=== PATIENT | female | born 1930 | race Caucasian/White ===

== ENCOUNTER → 2017-01-31 | Outpatient (CLI) | payer MEDICARE, BC ==
--- NOTE | 2017-02-04 09:03 | MM ---
Reason for exam: screening (asymptomatic). Last mammogram was performed 1 year ago. History: Patient is postmenopausal. Family history of breast cancer in sister at age 76 and breast cancer in grandmother at age 21. Took hormonal contraceptives for 10 years beginning at age 30. Physical Findings: A clinical breast exam by your physician is recommended on an annual basis and results should be correlated with mammographic findings. MG Screening Mammo w CAD Bilateral CC and MLO view(s) were taken. Prior study comparison: January 19, 2016, bilateral MG 3d screening mammo w/cad. The breast tissue is almost entirely fat. No significant changes when compared with prior studies. ASSESSMENT: Negative, BI-RAD 1 RECOMMENDATION: Routine screening mammogram of both breasts in 1 year.
== END | disposition home or self-care (01) ==
LOC: RADMAMWWP 10:57
PROVIDERS: ATTEND Internal Medicine
DX: Z12.31 Encounter for screening mammogram for malignant neoplasm of breast (principal)

== ENCOUNTER → 2018-04-22 | Outpatient (CLI) | payer MEDICARE, BC ==
--- NOTE | 2018-04-23 14:01 | MM ---
Reason for exam: screening (asymptomatic). Last mammogram was performed 1 year and 3 months ago. History: Patient is postmenopausal. Family history of breast cancer in sister at age 76 and breast cancer in grandmother at age 21. Took hormonal contraceptives for 10 years beginning at age 30. Physical Findings: A clinical breast exam by your physician is recommended on an annual basis and results should be correlated with mammographic findings. MG 3D Screening Mammo W/Cad Bilateral CC and MLO view(s) were taken. Prior study comparison: January 31, 2017, bilateral MG screening mammo w CAD. January 19, 2016, bilateral MG 3d screening mammo w/cad. There are scattered fibroglandular densities. There is benign appearing round vascular calcifications bilaterally. There is no discrete abnormality. ASSESSMENT: Benign, BI-RAD 2 RECOMMENDATION: Routine screening mammogram of both breasts in 1 year.
== END | disposition home or self-care (01) ==
LOC: RADMAMWWP 13:02
PROVIDERS: ATTEND Internal Medicine
DX: Z12.31 Encounter for screening mammogram for malignant neoplasm of breast (principal)
CPT/HCPCS: 77063; 77067

== ENCOUNTER 2019-04-13 18:02 | Inpatient (IN) | payer MEDICARE, BC ==
--- NOTE | 2019-04-13 18:36 | ED ---
SOB HPI - General Chief Complaint: Shortness of Breath Stated Complaint: Weakness Time Seen by Provider: 04/13/19 18:13 Source: patient, EMS Mode of arrival: EMS Limitations: no limitations - History of Present Illness Initial Comments: 88 yoF presenting with shortness of breath that has been present for the last two weeks. She states 7 weeks prior she had a right knee replacement. She's had some right lower extremity swelling since that surgery. She states the shortness of breath is when she is exerting herself. She was unable to complete her physical therapy today. She denies chest pain at any point. She states she did have a stress test, and was cleared by supervisor carton and can supply to have her right knee replacement. She denies any cough or fevers or chills. - Related Data Home Medications Medication Instructions Recorded Confirmed Latanoprost/Pf [Latanoprost 0.005% 1 drop BOTH EYES HS 04/13/19 04/13/19 Eye Drop] Zafirlukast [Accolate] 20 mg PO HS 04/13/19 04/13/19 Allergies Allergy/AdvReac Type Severity Reaction Status Date / Time No Known Allergies Allergy Unverified 04/13/19 18:45 Review of Systems ROS Statement: Those systems with pertinent positive or pertinent negative responses have been documented in the HPI. Review of Systems Constitutional: Denies fever, chills Eyes: Denies change in vision, Denies pain Ears, nose, mouth, throat: Denies headaches, Denies sore throat Cardiovascular: Denies chest pain. Denies palpitations Respiratory: Positive shortness of breath, Denies cough Gastrointestinal: Denies abdominal pain. Denies nausea, vomiting, diarrhea. Genitourinary: Denies hematuria, Denies infections Musculoskeletal: Denies pain, Denies swelling Integumentary: Denies rash Neurological: Denies headache, focal weakness, focal numbness Psychiatric: Denies anxiety, Denies depression Hematologic/Lymphatic: Denies easy bleeding or bruising ROS Other: All systems not noted in ROS Statement are negative. Past Medical History Additional Past Medical History / Comment(s): Bronchitis. History of Any Multi-Drug Resistant Organisms: None Reported Past Surgical History: Appendectomy, Orthopedic Surgery Additional Past Surgical History / Comment(s): right knee replacement Past Psychological History: No Psychological Hx Reported Smoking Status: Never smoker Past Alcohol Use History: None Reported Past Drug Use History: None Reported General Exam - General Exam Comments Initial Comments: General: Awake, alert, No acute Distress HENT: Normocephalic. Atraumatic Eyes: PERRL. EOMI. No scleral icterus. No injected conjunctiva Neck: Full ROM Chest/Lungs: Clear to auscultation bilaterally. No wheezing, rhonchi, or rales Cardiac: Regular rate, rhythm. No murmurs or rubs Abdomen/GI: Soft, nontender, nondistended. No rebound, guarding, or rigidity. Musculoskeletal: Full ROM. Swelling to RLE. Skin: Warm, dry, intact Neurologic: A/Ox3, no weakness, no sensory deficit, no abnormal gait, no coordination deficit Limitations: no limitations Course Vital Signs 04/13/19 04/13/19 04/13/19 18:03 18:14 19:27 Temperature 98.2 F Pulse Rate 63 95 Respiratory 22 22 18 Rate Blood Pressure 194/94 171/88 O2 Sat by Pulse 94 L 97 Oximetry 04/13/19 20:09 Temperature Pulse Rate 78 Respiratory 17 Rate Blood Pressure 159/94 O2 Sat by Pulse 98 Oximetry Medical Decision Making - Medical Decision Making 88-year-old female presenting with shortness of breath. Initial exam the patient is awake, alert, no acute distress. VSS. Patient is 95% on room air. Wells PE score 7.5. CT PE showed multiple pulmonary emboli but no evidence of right heart strain. Patient's troponin is 0.6. On repeat examination the patient is resting comfortably. She denies any history of intracranial or GI bleed. Her hemoglobin is stable. Her BMP showed hyperkalemia without an elevated creatinine. The patient has no EKG changes. She was given a 1L bolus and placed on maintenance fluids. I spoke with the admitting physician, Dr. Brandt regarding patient. She is currently stable for transfer to the floor. - Lab Data Result diagrams: 04/13/19 18:20 04/13/19 18:20 Lab Results 04/13/19 04/13/19 04/13/19 Range/Units 17:00 18:20 18:20 WBC 11.1 H (3.8-10.6) k/uL RBC 5.46 H (3.80-5.40) m/uL Hgb 15.4 (11.4-16.0) gm/dL Hct 47.7 H (34.0-46.0) % MCV 87.3 (80.0-100.0) fL MCH 28.2 (25.0-35.0) pg MCHC 32.4 (31.0-37.0) g/dL RDW 13.8 (11.5-15.5) % Plt Count 106 L (150-450) k/uL Neutrophils % 79 % Lymphocytes % 15 % Monocytes % 4 % Eosinophils % 1 % Basophils % 0 % Neutrophils # 8.8 H (1.3-7.7) k/uL Lymphocytes # 1.7 (1.0-4.8) k/uL Monocytes # 0.5 (0-1.0) k/uL Eosinophils # 0.1 (0-0.7) k/uL Basophils # 0.0 (0-0.2) k/uL PT 9.7 (9.0-12.0) sec INR 0.9 (<1.2) APTT 24.8 (22.0-30.0) sec Sodium 134 L (137-145) mmol/L Potassium 5.3 H (3.5-5.1) mmol/L Chloride 105 (98-107) mmol/L Carbon Dioxide 24 (22-30) mmol/L Anion Gap 5 mmol/L BUN 22 H (7-17) mg/dL Creatinine 0.68 (0.52-1.04) mg/dL Est GFR (CKD-EPI)AfAm >90 (>60 ml/min/1.73 sqM) Est GFR (CKD-EPI)NonAf 78 (>60 ml/min/1.73 sqM) Glucose 108 H (74-99) mg/dL Calcium 9.5 (8.4-10.2) mg/dL Troponin I (0.000-0.034) ng/mL NT-Pro-B Natriuret Pep pg/mL Urine Color Urine Appearance (Clear) Urine pH (5.0-8.0) Ur Specific [place] (1.001-1.035) Urine Protein (Negative) Urine Glucose (UA) (Negative) Urine Ketones (Negative) Urine Blood (Negative) Urine Nitrite (Negative) Urine Bilirubin (Negative) Urine Urobilinogen (<2.0) mg/dL Ur Leukocyte Esterase (Negative) 04/13/19 04/13/19 04/13/19 Range/Units 18:20 18:20 18:50 WBC (3.8-10.6) k/uL RBC (3.80-5.40) m/uL Hgb (11.4-16.0) gm/dL Hct (34.0-46.0) % MCV (80.0-100.0) fL MCH (25.0-35.0) pg MCHC (31.0-37.0) g/dL RDW (11.5-15.5) % Plt Count (150-450) k/uL Neutrophils % % Lymphocytes % % Monocytes % % Eosinophils % % Basophils % % Neutrophils # (1.3-7.7) k/uL Lymphocytes # (1.0-4.8) k/uL Monocytes # (0-1.0) k/uL Eosinophils # (0-0.7) k/uL Basophils # (0-0.2) k/uL PT (9.0-12.0) sec INR (<1.2) APTT (22.0-30.0) sec Sodium (137-145) mmol/L Potassium (3.5-5.1) mmol/L Chloride (98-107) mmol/L Carbon Dioxide (22-30) mmol/L Anion Gap mmol/L BUN (7-17) mg/dL Creatinine (0.52-1.04) mg/dL Est GFR (CKD-EPI)AfAm (>60 ml/min/1.73 sqM) Est GFR (CKD-EPI)NonAf (>60 ml/min/1.73 sqM) Glucose (74-99) mg/dL Calcium (8.4-10.2) mg/dL Troponin I 0.639 H* (0.000-0.034) ng/mL NT-Pro-B Natriuret Pep 4810 pg/mL Urine Color Yellow Urine Appearance Clear (Clear) Urine pH 5.5 (5.0-8.0) Ur Specific [place] 1.015 (1.001-1.035) Urine Protein Trace H (Negative) Urine Glucose (UA) Negative (Negative) Urine Ketones Negative (Negative) Urine Blood Negative (Negative) Urine Nitrite Negative (Negative) Urine Bilirubin Negative (Negative) Urine Urobilinogen <2.0 (<2.0) mg/dL Ur Leukocyte Esterase Negative (Negative) Disposition Clinical Impression: NSTEMI (non-ST elevated myocardial infarction), Pulmonary emboli, Hyperkalemia Disposition: ADMITTED IP TO THIS [facility] Decision to Admit Reason: Admit from EC Decision Date: 04/13/19 Decision Time: 19:47
[2019-04-13 18:46] LABS: Basophils % (A) 0 %; Eosinophils # (A) 0.1 k/uL (0-0.7); Eosinophils % (A) 1 %; HCT 47.7 % (34.0-46.0); HGB 15.4 gm/dL (11.4-16.0); Lymphocytes # (A) 1.7 k/uL (1.0-4.8); Lymphocytes % (A) 15 %; MCH 28.2 pg (25.0-35.0); MCHC 32.4 g/dL (31.0-37.0); MCV 87.3 fL (80.0-100.0); Mean Platelet Volume 7.9; Monocytes # (A) 0.5 k/uL (0-1.0); Monocytes % (A) 4 %; Neutrophils # (A) 8.8 k/uL (1.3-7.7); Neutrophils % (A) 79 %; Platelet Count 106 k/uL (150-450); RBC 5.46 m/uL (3.80-5.40); RDW 13.8 % (11.5-15.5); WBC 11.1 k/uL (3.8-10.6)
[2019-04-13 18:52] LABS: African American GFR (CKD) >90 (>60 ml/min/1.73 sqM); Anion Gap 5 mmol/L; Blood Urea Nitrogen 22 mg/dL (7-17); Calcium 9.5 mg/dL (8.4-10.2); Carbon Dioxide 24 mmol/L (22-30); Chloride 105 mmol/L (98-107); Glucose 108 mg/dL (74-99); Non-African American GFR(CKD) 78 (>60 ml/min/1.73 sqM); Sodium 134 mmol/L (137-145)
[2019-04-13 18:55] LABS: Potassium 5.3 mmol/L (3.5-5.1)
[2019-04-13 19:03] LABS: Appearance,Urine Clear (Clear); Bilirubin,Urine Negative (Negative); Blood,Urine Negative (Negative); Color,Urine Yellow; Glucose,Urine (UA) Negative (Negative); Ketones,Urine Negative (Negative); Leukocyte Esterase,Urine Negative (Negative); Nitrite,Urine Negative (Negative); PH, Urine 5.5 (5.0-8.0); Protein,Urine Trace (Negative); Specific Gravity,Urine 1.015 (1.001-1.035); Urobilinogen,Urine <2.0 mg/dL (<2.0)
[2019-04-13 19:22] LABS: INR 0.9 (<1.2); Partial Thromboplastin Time 24.8 sec (22.0-30.0); Prothrombin Time 9.7 sec (9.0-12.0)
[2019-04-13] MEDS ORDERED: HEPARIN SODIUM,PORCINE 5,000 UNIT/ML 1 ML VIAL IV PRN (19:29)
[2019-04-13] MEDS ORDERED: HEPARIN SODIUM,PORCINE 10,000 UNIT/ML 1 ML VIAL IV ONE (19:29)
[2019-04-13] MEDS ORDERED: SODIUM CHLORIDE 0.9% 1,000 ML IV ONE (19:33)
--- NOTE | 2019-04-13 19:33 | CT ---
EXAMINATION TYPE: CT chest angio for PE DATE OF EXAM: 04/13/2019 COMPARISON: HISTORY: SOB CT DLP: 336.2 mGycm Automated exposure control for dose reduction was used. CONTRAST: CT Chest for pulmonary embolism performed with with IV Contrast, patient injected with 62cc mL of Iso josemanuel 370. FINDINGS: There is some pleural thickening at the right lung apex. There is no evidence of a pulmonary mass. Th ere is no pleural effusion. Heart is borderline enlarged. There are multiple filling defects in the lower lobe pulmonary arteries bilaterally involving all of the segmental branches. There is also involvement of the right middle lobe pulmonary artery. There is small filling defects in the left and right upper lobe pulmonary arteries. The thoracic vertebra hav e fairly normal spacing and alignment. There is no compression fracture. I see no bony destructive pr ocess. There is hypertrophic multilevel spurring in the thoracic spine. The right ventricle has geraldine l size. There is no sign of right heart strain. IMPRESSION: Extensive bilateral upper and lower lobe pulmonary emboli as described above. This exam was discussed with ER physician at 7:30 PM.
--- NOTE | 2019-04-13 19:34 | XR ---
EXAMINATION TYPE: XR chest 2V DATE OF EXAM: 04/13/2019 COMPARISON: NONE HISTORY: Short of breath TECHNIQUE: Frontal and lateral views of the chest are obtained. FINDINGS: There is no heart failure nor confluent pneumonic infiltrate. Costophrenic angles are bhavana r. Thoracic aorta is atheromatous. Bony thorax is intact. IMPRESSION: No active cardiopulmonary disease. Normal heart.
[2019-04-13] MEDS ORDERED: HYDROcodone/APAP 5-325MG 1 EACH TAB PO PRN (19:42)
[2019-04-13] MEDS ORDERED: ONDANSETRON 4 MG/2 ML VIAL IVP PRN (19:42)
[2019-04-13] MEDS ORDERED: NALOXONE 0.4 MG/ML 1 ML VIAL IV PRN (19:42)
[2019-04-13] MEDS ORDERED: ACETAMINOPHEN TAB 325 MG TAB PO PRN (19:42)
[2019-04-13] MEDS: HEPARIN SOD,PORK IN 0.45% NACL 25,000 UNIT in 0.45% NACL 1 250ML.BAG IV SCH (20:06)
[2019-04-13] MEDS: LATANOPROST 0.005% OPHTH DROPS 2.5 ML BTL BOTH EYES SCH (23:33)
[2019-04-13] MEDS: MONTELUKAST 5 MG CHEWABLE PO SCH (23:36)
[2019-04-14 02:11] VITALS: BMI 32.0
[2019-04-14 06:27] LABS: Basophils # (A) 0.1 k/uL (0-0.2); Basophils % (A) 1 %; Eosinophils # (A) 0.1 k/uL (0-0.7); Eosinophils % (A) 1 %; HCT 43.1 % (34.0-46.0); HGB 13.3 gm/dL (11.4-16.0); Lymphocytes # (A) 1.6 k/uL (1.0-4.8); Lymphocytes % (A) 15 %; MCH 27.6 pg (25.0-35.0); MCHC 30.8 g/dL (31.0-37.0); MCV 89.7 fL (80.0-100.0); Mean Platelet Volume 7.4; Monocytes # (A) 0.6 k/uL (0-1.0); Monocytes % (A) 5 %; Neutrophils % (A) 77 %; Platelet Count 158 k/uL (150-450); WBC 10.4 k/uL (3.8-10.6)
[2019-04-14 07:24] LABS: African American GFR (CKD) >90 (>60 ml/min/1.73 sqM); Anion Gap 8 mmol/L; Blood Urea Nitrogen 20 mg/dL (7-17); Calcium 8.8 mg/dL (8.4-10.2); Carbon Dioxide 20 mmol/L (22-30); Chloride 111 mmol/L (98-107); Glucose 98 mg/dL (74-99); Non-African American GFR(CKD) 78 (>60 ml/min/1.73 sqM); Potassium 4.5 mmol/L (3.5-5.1); Sodium 139 mmol/L (137-145)
--- NOTE | 2019-04-14 08:49 | US ---
EXAMINATION TYPE: US venous doppler duplex LE DATE OF EXAM: 04/14/2019 7:33 AM COMPARISON: CT angiography of the chest dated 04/13/2019 CLINICAL HISTORY: lower extremity swelling with positive DVT. Bilateral PE right knee surgery x 7 wee ks ago. SIDE PERFORMED: Bilateral TECHNIQUE: The lower extremity deep venous system is examined utilizing real time linear array sonog mario with graded compression, doppler sonography and color-flow sonography. VESSELS IMAGED: External Iliac Vein (EIV) Common Femoral Vein Deep Femoral Vein Greater Saphenous Vein * Femoral Vein Popliteal Vein Small Saphenous Vein * Proximal Calf Veins (* superficial vessels) Grayscale, color doppler, spectral doppler imaging performed of the deep veins of the lower extremiti es. There is normal flow, compressibility, vascular waveforms on the left. Right Leg: Positive for DVT Popliteal Vein to Proximal Calf Veins. Left Leg: Negative for DVT IMPRESSION: 1. Deep venous thrombosis within the right popliteal vein extending into the proximal calf veins. The patient has known pulmonary emboli communicated with the ER on 04/13/2019. 2. No sonographic evidence of deep venous thrombosis within the left lower extremity.
--- NOTE | 2019-04-14 14:45 | P.HPIM ---
History of Present Illness 88-year-old pleasant female came in with compensative shortness of breath found to have extensive pulmonary emboli and bilateral lung coats upper and lower. Patient had a recent knee surgery 7 weeks ago was on 9 aspirin twice a day for a month after that it was stopped and patient was ablating after that and patient also found to have DVT in the right popliteal vein patient is presently on intravenous Cardizem denied any chest pain denied any leg pain nausea vomiting fever chills. Patient was started on heparin will evaluate for Eliquis authorization and patient probably will be started on Eliquis tomorrow patient does have minimally elevated troponin per probably secondary to right ventricular strain of the echocardiogram will be obtained as well. And is hemodynamically stable at this time. Review of Systems REVIEW OF SYSTEMS: CONSTITUTIONAL: No fever, no malaise, no fatigue. HEENT: No recent visual problems or hearing problems. Denied any sore throat. CARDIOVASCULAR: No chest pain, orthopnea, PND, no palpitations, no syncope. PULMONARY: no hemoptysis. GASTROINTESTINAL: No diarrhea, no nausea, no vomiting, no abdominal pain. NEUROLOGICAL: No headaches, no weakness, no numbness. HEMATOLOGICAL: Denies any bleeding or petechiae. GENITOURINARY: Denies any burning micturition, frequency, or urgency. MUSCULOSKELETAL/RHEUMATOLOGICAL: Denies any joint pain, swelling, or any muscle pain. ENDOCRINE: Denies any polyuria or polydipsia. The rest of the 14-point review of systems is negative. Past Medical History Additional Past Medical History / Comment(s): Bronchitis. History of Any Multi-Drug Resistant Organisms: None Reported Past Surgical History: Appendectomy, Orthopedic Surgery Additional Past Surgical History / Comment(s): right knee replacement 7 weeks ago Past Anesthesia/Blood Transfusion Reactions: No Reported Reaction Past Psychological History: No Psychological Hx Reported Smoking Status: Never smoker Past Alcohol Use History: None Reported Past Drug Use History: None Reported - Past Family History Mother Family Medical History: No Reported History Medications and Allergies Home Medications Medication Instructions Recorded Confirmed Type Latanoprost/Pf [Latanoprost 0.005% 1 drop BOTH EYES HS 04/13/19 04/13/19 History Eye Drop] Zafirlukast [Accolate] 20 mg PO HS 04/13/19 04/13/19 History Allergies Allergy/AdvReac Type Severity Reaction Status Date / Time No Known Allergies Allergy Unverified 04/13/19 18:45 Physical Exam Vitals: Vital Signs Temp Pulse Pulse Resp BP BP Pulse Ox 04/14/19 12:45 98.2 F 76 16 162/78 98 04/14/19 08:00 97.7 F 72 18 175/83 98 04/14/19 04:30 97.9 F 78 17 168/78 98 04/14/19 01:49 97.0 F L 69 18 147/93 97 04/13/19 23:00 55 L 19 189/77 97 04/13/19 22:30 60 18 195/87 96 04/13/19 22:00 64 19 188/83 96 04/13/19 21:30 67 18 181/87 97 04/13/19 20:09 78 17 159/94 98 04/13/19 19:27 98.2 F 95 18 171/88 97 04/13/19 18:14 22 04/13/19 18:03 63 22 194/94 94 L Intake and Output 04/13/19 04/14/19 04/14/19 22:59 06:59 14:59 Intake Total 87.157 727.516 Balance 87.157 727.516 Intake: IV 160 .9 160 Intake, IV Titration 87.157 87.516 Amount Heparin Sod,Pork in 0.45% 87.157 87.516 NaCl 25,000 unit In 0.45 % NaCl 1 250ml.bag @ 18 UNITS/KG/HR 14.288 mls/hr IV .[id number] [facility] Rx#: [id number] Oral 480 Other: Voiding Method Toilet # Voids 1 1 Weight 79.379 kg PHYSICAL EXAMINATION: GENERAL: The patient is alert and oriented x3, not in any acute distress. Well developed, well nourished. HEENT: Pupils are round and equally reacting to light. EOMI. No scleral icterus. No conjunctival pallor. Normocephalic, atraumatic. No pharyngeal erythema. No thyromegaly. CARDIOVASCULAR: S1 and S2 present. No murmurs, rubs, or gallops. PULMONARY: Chest is clear to auscultation, no wheezing or crackles. ABDOMEN: Soft, nontender, nondistended, normoactive bowel sounds. No palpable organomegaly. MUSCULOSKELETAL: No joint swelling or deformity. EXTREMITIES: No cyanosis, clubbing, or pedal edema. NEUROLOGICAL: Gross neurological examination did not reveal any focal deficits. SKIN: No rashes. Results CBC & Chem 7: 04/14/19 06:02 04/14/19 06:02 Labs: Abnormal Lab Results - Last 24 Hours (Table) 04/13/19 04/13/19 04/13/19 Range/Units 18:20 18:20 18:20 WBC 11.1 H (3.8-10.6) k/uL RBC 5.46 H (3.80-5.40) m/uL Hct 47.7 H (34.0-46.0) % MCHC (31.0-37.0) g/dL Plt Count 106 L (150-450) k/uL Neutrophils # 8.8 H (1.3-7.7) k/uL APTT (22.0-30.0) sec Sodium 134 L (137-145) mmol/L Potassium 5.3 H (3.5-5.1) mmol/L Chloride (98-107) mmol/L Carbon Dioxide (22-30) mmol/L BUN 22 H (7-17) mg/dL Glucose 108 H (74-99) mg/dL Troponin I 0.639 H* (0.000-0.034) ng/mL Urine Protein (Negative) 04/13/19 04/14/19 04/14/19 Range/Units 18:50 01:01 01:01 WBC (3.8-10.6) k/uL RBC (3.80-5.40) m/uL Hct (34.0-46.0) % MCHC (31.0-37.0) g/dL Plt Count (150-450) k/uL Neutrophils # (1.3-7.7) k/uL APTT >200.0 H* (22.0-30.0) sec Sodium (137-145) mmol/L Potassium (3.5-5.1) mmol/L Chloride (98-107) mmol/L Carbon Dioxide (22-30) mmol/L BUN (7-17) mg/dL Glucose (74-99) mg/dL Troponin I 0.561 H* (0.000-0.034) ng/mL Urine Protein Trace H (Negative) 04/14/19 04/14/19 04/14/19 Range/Units 06:02 06:02 06:02 WBC (3.8-10.6) k/uL RBC (3.80-5.40) m/uL Hct (34.0-46.0) % MCHC 30.8 L (31.0-37.0) g/dL Plt Count (150-450) k/uL Neutrophils # 8.0 H (1.3-7.7) k/uL APTT (22.0-30.0) sec Sodium (137-145) mmol/L Potassium (3.5-5.1) mmol/L Chloride 111 H (98-107) mmol/L Carbon Dioxide 20 L (22-30) mmol/L BUN 20 H (7-17) mg/dL Glucose (74-99) mg/dL Troponin I 0.386 H* (0.000-0.034) ng/mL Urine Protein (Negative) 04/14/19 04/14/19 Range/Units 08:42 11:54 WBC (3.8-10.6) k/uL RBC (3.80-5.40) m/uL Hct (34.0-46.0) % MCHC (31.0-37.0) g/dL Plt Count (150-450) k/uL Neutrophils # (1.3-7.7) k/uL APTT 167.6 H* 76.9 H (22.0-30.0) sec Sodium (137-145) mmol/L Potassium (3.5-5.1) mmol/L Chloride (98-107) mmol/L Carbon Dioxide (22-30) mmol/L BUN (7-17) mg/dL Glucose (74-99) mg/dL Troponin I (0.000-0.034) ng/mL Urine Protein (Negative) Thrombosis Risk Factor Assmnt - Choose All That Apply Any of the Below Risk Factors Present?: Yes Each Factor Represents 1 point: Obesity (BMI >25) Other Risk Factors: Yes Each Risk Factor Represents 3 Points: Age 75 years or older Thrombosis Risk Factor Assessment Total Risk Factor Score: 4 Thrombosis Risk Factor Assessment Level: Moderate Risk Assessment and Plan Plan: -Bilateral extensive pulmonary embolism intermediate risk considering right ventricle strain elevated troponin echocardiogram will be obtained patient will be continued on IV heparin will be started on Eliquis most probably tomorrow. Patient is presently medically stable, patient's be secondary to have a right knee surgery recently will require 3 months of anticoagulation. Patient does have DVT in the right popliteal vein had a right knee surgery 7 weeks ago -Mildly elevated troponin secondary to right ventricular strain echocardiogram as mentioned above GI prophylaxis with Pepcid
[2019-04-14] MEDS: HEPARIN SOD,PORK IN 0.45% NACL 25,000 UNIT in 0.45% NACL 1 250ML.BAG IV SCH (15:08)
[2019-04-14] MEDS: LATANOPROST 0.005% OPHTH DROPS 2.5 ML BTL BOTH EYES SCH (20:39)
[2019-04-14] MEDS: MONTELUKAST 5 MG CHEWABLE PO SCH (20:39)
[2019-04-14] MEDS: FAMOTIDINE 20 MG TAB PO SCH (20:39)
[2019-04-15 07:43] LABS: Basophils # (A) 0.1 k/uL (0-0.2); Basophils % (A) 1 %; Eosinophils # (A) 0.1 k/uL (0-0.7); Eosinophils % (A) 1 %; HCT 43.2 % (34.0-46.0); HGB 13.2 gm/dL (11.4-16.0); Lymphocytes # (A) 1.8 k/uL (1.0-4.8); Lymphocytes % (A) 16 %; MCH 27.5 pg (25.0-35.0); MCHC 30.6 g/dL (31.0-37.0); MCV 90.1 fL (80.0-100.0); Mean Platelet Volume 7.4; Monocytes # (A) 0.5 k/uL (0-1.0); Monocytes % (A) 4 %; Neutrophils # (A) 8.2 k/uL (1.3-7.7); Neutrophils % (A) 76 %; Platelet Count 163 k/uL (150-450); WBC 10.7 k/uL (3.8-10.6)
[2019-04-15] MEDS: HEPARIN SOD,PORK IN 0.45% NACL 25,000 UNIT in 0.45% NACL 1 250ML.BAG IV SCH (08:39)
[2019-04-15] MEDS: FAMOTIDINE 20 MG TAB PO SCH (08:40)
[2019-04-15 09:40] VITALS: RESP 20
[2019-04-15] MEDS ORDERED: APIXABAN 5 MG TAB PO SCH (10:30)
--- NOTE | 2019-04-15 11:17 | ECHOF ---
Referral Reason:Eval LV and RV fxn MEASUREMENTS -------- HEIGHT: 157.5 cm WEIGHT: 79.4 kg BP: 130/60 RVIDd: 3.1 cm (< 3.3) IVSd: 1.4 cm (0.6 - 1.1) LVIDd: 2.9 cm (3.9 - 5.3) LVPWd: 1.6 cm (0.6 - 1.1) IVSs: 1.6 cm LVIDs: 2.3 cm LVPWs: 1.9 cm LA Diam: 2.8 cm (2.7 - 3.8) LAESV Index (A-L): 27.82 ml/m Ao Diam: 2.2 cm (2.0 - 3.7) AV Cusp: 1.4 cm (1.5 - 2.6) MV EXCURSION: 9.414 mm (> 18.000) MV EF SLOPE: 22 mm/s (70 - 150) EPSS: 1.0 cm MV E Magdy: 0.68 m/s MV DecT: 308 ms MV A Magdy: 1.13 m/s MV E/A Ratio: 0.60 AV maxP.87 mmHg AV meanP.96 mmHg AR PHT: 852 ms RAP: 5.00 mmHg RVSP: 48.34 mmHg FINDINGS -------- Sinus rhythm. This was a technically adequate study. The left ventricular size is normal. There is mild concentric left ventricular hypertrophy. Overa ll left ventricular systolic function is normal with, an EF between 55 - 60 %. Diastolic dysfunctio n The right ventricle is normal in size. Normal LA size by volume 22+/-6 ml/m2. The right atrium is normal in size. Interatrial and interventricular septum intact. The aortic valve was not well visualized. Peak/mean gradient across the Aortic Valve is 12.87mmHg / 5.96mmHg. The mitral valve leaflets are mildly thickened. Mild mitral annular calcification present. There is trace mitral regurgitation. Mild tricuspid regurgitation present. There is mild to moderate pulmonary hypertension. The right ventricular systolic pressure, as measured by Doppler, is 48.34mmHg. The pulmonic valve was not well visualized. The aortic root size is normal. Normal inferior vena cava with normal inspiratory collapse consistent with estimated right atrial pre ssure of 5 mmHg. There is no pericardial effusion. CONCLUSIONS -------- 1. Sinus rhythm. 2. This was a technically adequate study. 3. The left ventricular size is normal. 4. There is mild concentric left ventricular hypertrophy. 5. Overall left ventricular systolic function is normal with, an EF between 55 - 60 %. 6. Diastolic dysfunction 7. The right ventricle is normal in size. 8. Normal LA size by volume 22+/-6 ml/m2. 9. The right atrium is normal in size. 10. Interatrial and interventricular septum intact. 11. The aortic valve was not well visualized. 12. Peak/mean gradient across the Aortic Valve is 12.87mmHg / 5.96mmHg. 13. The mitral valve leaflets are mildly thickened. 14. Mild mitral annular calcification present. 15. There is trace mitral regurgitation. 16. Mild tricuspid regurgitation present. 17. There is mild to moderate pulmonary hypertension. 18. The right ventricular systolic pressure, as measured by Doppler, is 48.34mmHg. 19. The pulmonic valve was not well visualized. 20. The aortic root size is normal. 21. Normal inferior vena cava with normal inspiratory collapse consistent with estimated right atrial pressure of 5 mmHg. 22. There is no pericardial effusion. REPORT SPECIALIST: Callie Harding RDCS
[2019-04-15 12:16] VITALS: BP 182/74; PULSE 88; TEMP 98.7
--- NOTE | 2019-04-15 13:20 | P.DS ---
Providers Date of admission: 04/13/19 19:42 Attending physician: Elver Brandt MD Primary care physician: Elena Vargas [facility] Course: 88-year-old pleasant female came in with compensative shortness of breath found to have extensive pulmonary emboli and bilateral lung coats upper and lower. Patient had a recent knee surgery 7 weeks ago was on 9 aspirin twice a day for a month after that it was stopped and patient was ablating after that and patient also found to have DVT in the right popliteal vein patient is presently on intravenous Cardizem denied any chest pain denied any leg pain nausea vomiting fever chills. Patient was started on heparin will evaluate for Eliquis authorization and patient probably will be started on Eliquis tomorrow patient does have minimally elevated troponin per probably secondary to right ventricular strain of the echocardiogram will be obtained as well. And is hemodynamically stable at this time. 04/15/2019 Patient is clinical doing well today patient will be discharged on Eliquis 10 mg twice a day for a week followed by 5 mg twice a day. Patient will only need 3 months of for Eliquis we'll give one month 3 here and did discuss with Dr. Vargas and may be able to get one more month for free from the clinic. Patient is saturating well on room air upon ambulation. Advised her to wear compression socks to avoid post-thrombotic pain. Patient blood pressure is bit elevated will not be started on any antidepressant medications as her blood pressure at home was within normal limits. Patient does not appear to have essential hypertension. PHYSICAL EXAMINATION: GENERAL: The patient is alert and oriented x3, not in any acute distress. Well developed, well nourished. HEENT: Pupils are round and equally reacting to light. EOMI. No scleral icterus. No conjunctival pallor. Normocephalic, atraumatic. No pharyngeal erythema. No thyromegaly. CARDIOVASCULAR: S1 and S2 present. No murmurs, rubs, or gallops. PULMONARY: Chest is clear to auscultation, no wheezing or crackles. ABDOMEN: Soft, nontender, nondistended, normoactive bowel sounds. No palpable organomegaly. MUSCULOSKELETAL: No joint swelling or deformity. EXTREMITIES: No cyanosis, clubbing, or pedal edema. NEUROLOGICAL: Gross neurological examination did not reveal any focal deficits. SKIN: No rashes. Please refer to my dictation of H&P for further details patient had extensive bilateral pulmonary embolism along with DVT in the right popliteal vein Plan - Discharge Summary New Discharge Prescriptions: New Apixaban [Eliquis] 10 mg PO BID #60 tab Continue Zafirlukast [Accolate] 20 mg PO HS Latanoprost/Pf [Latanoprost 0.005% Eye Drop] 1 drop BOTH EYES HS Discharge Medication List Latanoprost/Pf [Latanoprost 0.005% Eye Drop] 1 drop BOTH EYES HS 04/13/19 [History] Zafirlukast [Accolate] 20 mg PO HS 04/13/19 [History] Apixaban [Eliquis] 10 mg PO BID #60 tab 04/15/19 [Rx] Follow up Appointment(s)/Referral(s): Elena Vargas MD [Primary Care Provider] - 04/20/19 3:15 pm (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 Patient will need 3 months of treatment, then D/C. [employer] rep was contacted, She will contact Dr. Vargas office and drop off samples for the next two months of your treatment. Discharge Disposition: HOME SELF-CARE
[2019-04-16] MEDS ORDERED: FAMOTIDINE 20 MG TAB PO SCH (09:00)
== END 2019-04-15 16:24 | disposition home or self-care (01) | DRG 176 ==
LOC: EC 18:02 → 3SCARD 19:42
PROVIDERS: ADMIT Internal Medicine; ATTEND Internal Medicine
DX: I26.99 Other pulmonary embolism without acute cor pulmonale (principal); I82.431 Acute embolism and thrombosis of right popliteal vein; E87.5 Hyperkalemia; Z96.651 Presence of right artificial knee joint; R74.8 Abnormal levels of other serum enzymes
CPT/HCPCS: 36415; 71046; 71275; 80048; 81003; 83880; 84484; 85025; 85610; 85730; 93005; 93306; 93970; 96365; 96366; 96376; 99285

== ENCOUNTER 2019-04-18 20:35 | Emergency (ER) | payer MEDICARE, BC ==
--- NOTE | 2019-04-18 21:41 | ED ---
General Adult HPI - General Chief complaint: Dizziness Stated complaint: Weakness Time Seen by Provider: 04/18/19 21:24 Source: patient, EMS Mode of arrival: EMS Limitations: no limitations - History of Present Illness Initial comments: Dictation was produced using [employer] dictation software. please excuse any grammatical, word or spelling errors. Chief Complaint: 88-year-old female presents chief complaint dizziness. History of Present Illness: 88-year-old female presents chief complaint dizziness. Patient is recently diagnosed with pulmonary embolus. She was prescribed L Oquist. Patient states that today she had to couple hours of dizziness. Patient states she did not feel like the room was spinning. She did feel slightly nauseated however had no episodes of emesis. Patient denies any cough. Denies any constitutional symptoms. While in route to the emergency department if she feels as though her symptoms had completely resolved. She has no other medical complaints. The ROS documented in this emergency department record has been reviewed and confirmed by me. Those systems with pertinent positive or negative responses have been documented in the HPI. All other systems are other negative and/or noncontributory. PHYSICAL EXAM: General Impression: Alert and oriented x3, not in acute distress HEENT: Normocephalic atraumatic, extra-ocular movements intact, pupils equal and reactive to light bilaterally, mucous membranes moist. Cardiovascular: Irregular Chest: Lungs clear to auscultation bilaterally, no rhonchi, no wheeze, no rales Abdomen: Bowel sounds present, abdomen soft, non-tender, non-distended, no organomegaly Musculoskeletal: Pulses present and equal in all extremities, no peripheral edema Motor: no focal deficits noted Neurological: CN II-XII grossly intact, no focal motor or sensory deficits noted Skin: Intact with no visualized rashes Psych: Normal affect and mood ED course: 88 y Old female chief complaint of dizziness. Patient's clinical presentation more consistent with dizziness as opposed to vertigo. She denies sensation of the room spinning. She is brought to the emergency department by EMS. EMS noted that she had multiple PVCs. Vital signs upon arrival shows heart rate of 55, blood pressure 194/78. Her medications were reviewed. EKG shows normal sinus rhythm with sinus arrhythmia. Laboratory evaluation obtained showing no acute processes. Urinalysis negative. Chest x-ray is nonacute. Patient was observed in emergency department for couple hours and continues to endorse no symptoms. . Patient clear for discharge. Return parameters discussed. Advised to follow-up with primary care physician. EKG interpretation: Ventricular rate, sinus rhythm, QRS 86, QTC 432.. No ME prolongation, no QTC prolongation, no ST or T-wave changes noted. EKG compared to 04/13/2019 showing no changes. Overall, this EKG is unremarkable - Related Data Home Medications Medication Instructions Recorded Confirmed Latanoprost/Pf [Latanoprost 0.005% 1 drop BOTH EYES HS 04/13/19 04/18/19 Eye Drop] Zafirlukast [Accolate] 20 mg PO HS 04/13/19 04/18/19 Apixaban [Eliquis] See Taper PO BID 04/18/19 04/18/19 Allergies Allergy/AdvReac Type Severity Reaction Status Date / Time No Known Allergies Allergy Verified 04/18/19 21:20 Review of Systems ROS Statement: Those systems with pertinent positive or pertinent negative responses have been documented in the HPI. ROS Other: All systems not noted in ROS Statement are negative. Past Medical History Additional Past Medical History / Comment(s): Bronchitis. History of Any Multi-Drug Resistant Organisms: None Reported Past Surgical History: Appendectomy, Orthopedic Surgery Additional Past Surgical History / Comment(s): right knee replacement 7 weeks ago Past Anesthesia/Blood Transfusion Reactions: No Reported Reaction Past Psychological History: No Psychological Hx Reported Smoking Status: Never smoker Past Alcohol Use History: None Reported Past Drug Use History: None Reported - Past Family History Mother Family Medical History: No Reported History General Exam Limitations: no limitations Course Vital Signs 04/18/19 04/18/19 04/18/19 20:49 21:00 21:30 Temperature 97.7 F Pulse Rate 55 L 53 L 62 Respiratory 18 18 17 Rate Blood Pressure 194/78 194/78 171/85 O2 Sat by Pulse 96 96 97 Oximetry 04/18/19 04/18/19 22:00 22:30 Temperature Pulse Rate 53 L 60 Respiratory 18 19 Rate Blood Pressure 175/87 143/56 O2 Sat by Pulse 94 L 95 Oximetry Medical Decision Making - Lab Data Result diagrams: 04/18/19 21:15 04/18/19 21:15 Lab Results 04/18/19 04/18/19 04/18/19 Range/Units 21:15 21:15 22:48 WBC 7.8 (3.8-10.6) k/uL RBC 4.90 (3.80-5.40) m/uL Hgb 13.9 (11.4-16.0) gm/dL Hct 42.2 (34.0-46.0) % MCV 86.3 (80.0-100.0) fL MCH 28.3 (25.0-35.0) pg MCHC 32.8 (31.0-37.0) g/dL RDW 13.8 (11.5-15.5) % Plt Count 204 (150-450) k/uL Neutrophils % 75 % Lymphocytes % 16 % Monocytes % 5 % Eosinophils % 3 % Basophils % 1 % Neutrophils # 5.9 (1.3-7.7) k/uL Lymphocytes # 1.2 (1.0-4.8) k/uL Monocytes # 0.4 (0-1.0) k/uL Eosinophils # 0.2 (0-0.7) k/uL Basophils # 0.1 (0-0.2) k/uL Sodium 139 (137-145) mmol/L Potassium 4.4 (3.5-5.1) mmol/L Chloride 106 (98-107) mmol/L Carbon Dioxide 26 (22-30) mmol/L Anion Gap 7 mmol/L BUN 19 H (7-17) mg/dL Creatinine 0.66 (0.52-1.04) mg/dL Est GFR (CKD-EPI)AfAm >90 (>60 ml/min/1.73 sqM) Est GFR (CKD-EPI)NonAf 79 (>60 ml/min/1.73 sqM) Glucose 122 H (74-99) mg/dL Calcium 9.0 (8.4-10.2) mg/dL Magnesium 2.0 (1.6-2.3) mg/dL Urine Color Yellow Urine Appearance Clear (Clear) Urine pH 6.0 (5.0-8.0) Ur Specific [place] 1.023 (1.001-1.035) Urine Protein Negative (Negative) Urine Glucose (UA) Negative (Negative) Urine Ketones Negative (Negative) Urine Blood Negative (Negative) Urine Nitrite Negative (Negative) Urine Bilirubin Negative (Negative) Urine Urobilinogen <2.0 (<2.0) mg/dL Ur Leukocyte Esterase Negative (Negative) Disposition Clinical Impression: Dizziness Disposition: HOME SELF-CARE Condition: Good Instructions (If sedation given, give patient instructions): Dizziness (ED) Is patient prescribed a controlled substance at d/c from ED?: No Referrals: Elena Vargas MD [Primary Care Provider] - 1-2 days Time of Disposition: 23:30
[2019-04-18 21:44] LABS: Basophils # (A) 0.1 k/uL (0-0.2); Basophils % (A) 1 %; Eosinophils # (A) 0.2 k/uL (0-0.7); Eosinophils % (A) 3 %; HCT 42.2 % (34.0-46.0); HGB 13.9 gm/dL (11.4-16.0); Lymphocytes # (A) 1.2 k/uL (1.0-4.8); Lymphocytes % (A) 16 %; MCH 28.3 pg (25.0-35.0); MCHC 32.8 g/dL (31.0-37.0); MCV 86.3 fL (80.0-100.0); Mean Platelet Volume 7.5; Monocytes # (A) 0.4 k/uL (0-1.0); Monocytes % (A) 5 %; Neutrophils # (A) 5.9 k/uL (1.3-7.7); Neutrophils % (A) 75 %; Platelet Count 204 k/uL (150-450); RDW 13.8 % (11.5-15.5); WBC 7.8 k/uL (3.8-10.6)
[2019-04-18 21:55] LABS: African American GFR (CKD) >90 (>60 ml/min/1.73 sqM); Anion Gap 7 mmol/L; Blood Urea Nitrogen 19 mg/dL (7-17); Carbon Dioxide 26 mmol/L (22-30); Chloride 106 mmol/L (98-107); Glucose 122 mg/dL (74-99); Sodium 139 mmol/L (137-145)
--- NOTE | 2019-04-18 21:55 | XR ---
EXAMINATION TYPE: XR chest 1V portable DATE OF EXAM: 04/18/2019 COMPARISON: Chest x-ray April 13, 2019 HISTORY: Weakness. TECHNIQUE: Single AP portable frontal upright view of the chest is obtained. FINDINGS: There is chronic parenchymal change without suspicious focal air space opacity, pleural ef fusion, or pneumothorax seen. Overlying EKG leads are seen. The cardiac silhouette size is stable an d mildly enlarged. The osseous structures are intact. IMPRESSION: Chronic changes mild cardiomegaly without acute pulmonary process. No significant change from recent chest x-ray.
[2019-04-18 21:59] LABS: Potassium 4.4 mmol/L (3.5-5.1)
[2019-04-18 23:04] LABS: Appearance,Urine Clear (Clear); Bilirubin,Urine Negative (Negative); Blood,Urine Negative (Negative); Color,Urine Yellow; Glucose,Urine (UA) Negative (Negative); Ketones,Urine Negative (Negative); Leukocyte Esterase,Urine Negative (Negative); Nitrite,Urine Negative (Negative); Protein,Urine Negative (Negative); Specific Gravity,Urine 1.023 (1.001-1.035); Urobilinogen,Urine <2.0 mg/dL (<2.0)
[2019-04-18 23:41] VITALS: BP 170/74; PULSE 66; RESP 18; TEMP 98.1
== END 2019-04-18 23:41 | disposition home or self-care (01) ==
LOC: EC 20:35
DX: R42 Dizziness and giddiness (principal); R53.1 Weakness; R11.0 Nausea; Z86.711 Personal history of pulmonary embolism; Z79.01 Long term (current) use of anticoagulants; Z79.899 Other long term (current) drug therapy; Z96.651 Presence of right artificial knee joint
CPT/HCPCS: 36415; 71045; 80048; 81003; 83735; 85025; 93005; 99285

== ENCOUNTER → 2020-02-29 | Outpatient (CLI) | payer MEDICARE, BC ==
--- NOTE | 2020-03-03 10:31 | MM ---
Reason for exam: screening (asymptomatic). Last mammogram was performed 1 year and 10 months ago. History: Patient is postmenopausal and history of other cancer. Family history of breast cancer in sister at age 76 and breast cancer in daughter at age 21. Took hormonal contraceptives for 10 years beginning at age 30. Physical Findings: A clinical breast exam by your physician is recommended on an annual basis and results should be correlated with mammographic findings. MG 3D Screening Mammo W/Cad Bilateral CC and MLO view(s) were taken. XCCL view(s) were taken of the left breast. Prior study comparison: April 22, 2018, bilateral MG 3d screening mammo w/cad. January 31, 2017, bilateral MG screening mammo w CAD. There are scattered fibroglandular densities. Finding: There are typically benign vascular, diffuse/scattered calcifications. No significant changes in finding since April 22, 2018 and January 31, 2017. ASSESSMENT: Benign, BI-RAD 2 RECOMMENDATION: Routine screening mammogram of both breasts in 1 year.
== END | disposition home or self-care (01) ==
LOC: RADMAMWWP 12:37
PROVIDERS: ATTEND Internal Medicine
DX: Z12.31 Encounter for screening mammogram for malignant neoplasm of breast (principal)
CPT/HCPCS: 77063; 77067

== ENCOUNTER 2020-04-07 09:41 | Inpatient (IN) | payer MEDICARE, BC ==
--- NOTE | 2020-04-07 10:14 | ED ---
General Adult HPI - General Chief complaint: Extremity Problem,Nontraumatic Stated complaint: Leg Swelling, SOB Time Seen by Provider: 04/07/20 09:57 Source: patient, RN notes reviewed Mode of arrival: ambulatory Limitations: no limitations - History of Present Illness Initial comments: Patient is a pleasant 89-year-old female presenting to the emergency Department with complaints of right lower leg swelling. Patient states symptoms have been present the past 3-4 days. Patient states symptoms are somewhat mild. No discomfort. Patient does have history of similar symptoms previously associated with blood clot. Patient also states that she has some very mild difficulty in breathing. Patient is unclear if it may be secondary to the weather. Dyspnea and does not increase with exertion. No chest pain. Patient was on Eliquis last year and has been off for the past 8 months or so. Patient was only on it for 3 or 4 months. - Related Data Home Medications Medication Instructions Recorded Confirmed Latanoprost/Pf [Latanoprost 0.005% 1 drop BOTH EYES HS 04/13/19 04/07/20 Eye Drop] Zafirlukast [Accolate] 20 mg PO HS 04/13/19 04/07/20 Ascorbic Acid [Vitamin C] 500 mg PO DAILY 04/07/20 04/07/20 Calcium Carbonate/Vitamin D3 1 tab PO DAILY 04/07/20 04/07/20 [Calcium 600-Vit D3 400 Tablet] Allergies Allergy/AdvReac Type Severity Reaction Status Date / Time No Known Allergies Allergy Verified 04/07/20 10:35 Review of Systems ROS Statement: Those systems with pertinent positive or pertinent negative responses have been documented in the HPI. ROS Other: All systems not noted in ROS Statement are negative. Constitutional: Denies: fever Eyes: Denies: eye pain ENT: Denies: ear pain Respiratory: Reports: as per HPI. Denies: cough Cardiovascular: Denies: chest pain Endocrine: Denies: fatigue Gastrointestinal: Denies: abdominal pain Genitourinary: Denies: dysuria Musculoskeletal: Denies: back pain Skin: Denies: rash Neurological: Denies: weakness Past Medical History Past Medical History: Deep Vein Thrombosis (DVT), Pulmonary Embolus (PE) Additional Past Medical History / Comment(s): glaucoma History of Any Multi-Drug Resistant Organisms: None Reported Past Surgical History: Appendectomy, Orthopedic Surgery Additional Past Surgical History / Comment(s): right knee replacement Past Anesthesia/Blood Transfusion Reactions: No Reported Reaction Past Psychological History: No Psychological Hx Reported Smoking Status: Never smoker Past Alcohol Use History: None Reported Past Drug Use History: None Reported - Past Family History Mother Family Medical History: No Reported History General Exam Limitations: no limitations General appearance: alert, in no apparent distress Head exam: Present: normocephalic Eye exam: Present: normal appearance Neck exam: Present: normal inspection Respiratory exam: Present: normal lung sounds bilaterally Cardiovascular Exam: Present: regular rate, normal rhythm Expanded Peripheral pulses: 2+: Dorsalis Pedis (R), Dorsalis Pedis (L) GI/Abdominal exam: Present: soft. Absent: tenderness Extremities exam: Present: calf tenderness (Mild on the right), other (Mild leg swelling right lower leg. No erythema.) Neurological exam: Present: alert Psychiatric exam: Present: normal affect, normal mood Skin exam: Present: normal color. Absent: erythema Course Vital Signs 04/07/20 09:52 Temperature 98.3 F Pulse Rate 54 L Respiratory 18 Rate Blood Pressure 202/74 O2 Sat by Pulse 98 Oximetry EKG Findings - EKG Comments: EKG Findings:: Sinus bradycardia 56. Premature supraventricular complexes. AR 172. QRS 84. QT 446. QTc 4:30. Left axis. Poor R-wave progression. No acute ST change Medical Decision Making - Medical Decision Making Patient reevaluated and updated. Patient is resting comfortably in bed. Case was discussed in detail with Dr. Samuel, who will admit covering for Dr. Vargas. - Lab Data Result diagrams: 04/07/20 10:21 04/07/20 10:21 Lab Results 04/07/20 04/07/20 04/07/20 Range/Units 10:21 10:21 10:21 WBC 8.4 (3.8-10.6) k/uL RBC 5.19 (3.80-5.40) m/uL Hgb 15.3 (11.4-16.0) gm/dL Hct 47.2 H (34.0-46.0) % MCV 91.0 (80.0-100.0) fL MCH 29.4 (25.0-35.0) pg MCHC 32.3 (31.0-37.0) g/dL RDW 14.0 (11.5-15.5) % Plt Count 191 (150-450) k/uL Neutrophils % 71 % Lymphocytes % 23 % Monocytes % 4 % Eosinophils % 2 % Basophils % 1 % Neutrophils # 6.0 (1.3-7.7) k/uL Lymphocytes # 1.9 (1.0-4.8) k/uL Monocytes # 0.3 (0-1.0) k/uL Eosinophils # 0.1 (0-0.7) k/uL Basophils # 0.1 (0-0.2) k/uL PT 9.8 (9.0-12.0) sec INR 0.9 (<1.2) APTT 23.6 (22.0-30.0) sec Sodium 140 (137-145) mmol/L Potassium 4.4 (3.5-5.1) mmol/L Chloride 108 H (98-107) mmol/L Carbon Dioxide 25 (22-30) mmol/L Anion Gap 7 mmol/L BUN 20 H (7-17) mg/dL Creatinine 0.63 (0.52-1.04) mg/dL Est GFR (CKD-EPI)AfAm >90 (>60 ml/min/1.73 sqM) Est GFR (CKD-EPI)NonAf 80 (>60 ml/min/1.73 sqM) Glucose 99 (74-99) mg/dL Calcium 9.3 (8.4-10.2) mg/dL Total Bilirubin 0.8 (0.2-1.3) mg/dL AST 28 (14-36) U/L ALT 16 (4-34) U/L Alkaline Phosphatase 88 (38-126) U/L Troponin I (0.000-0.034) ng/mL NT-Pro-B Natriuret Pep pg/mL Total Protein 6.6 (6.3-8.2) g/dL Albumin 4.1 (3.5-5.0) g/dL 04/07/20 04/07/20 Range/Units 10:21 10:21 WBC (3.8-10.6) k/uL RBC (3.80-5.40) m/uL Hgb (11.4-16.0) gm/dL Hct (34.0-46.0) % MCV (80.0-100.0) fL MCH (25.0-35.0) pg MCHC (31.0-37.0) g/dL RDW (11.5-15.5) % Plt Count (150-450) k/uL Neutrophils % % Lymphocytes % % Monocytes % % Eosinophils % % Basophils % % Neutrophils # (1.3-7.7) k/uL Lymphocytes # (1.0-4.8) k/uL Monocytes # (0-1.0) k/uL Eosinophils # (0-0.7) k/uL Basophils # (0-0.2) k/uL PT (9.0-12.0) sec INR (<1.2) APTT (22.0-30.0) sec Sodium (137-145) mmol/L Potassium (3.5-5.1) mmol/L Chloride (98-107) mmol/L Carbon Dioxide (22-30) mmol/L Anion Gap mmol/L BUN (7-17) mg/dL Creatinine (0.52-1.04) mg/dL Est GFR (CKD-EPI)AfAm (>60 ml/min/1.73 sqM) Est GFR (CKD-EPI)NonAf (>60 ml/min/1.73 sqM) Glucose (74-99) mg/dL Calcium (8.4-10.2) mg/dL Total Bilirubin (0.2-1.3) mg/dL AST (14-36) U/L ALT (4-34) U/L Alkaline Phosphatase (38-126) U/L Troponin I 0.016 (0.000-0.034) ng/mL NT-Pro-B Natriuret Pep 1260 pg/mL Total Protein (6.3-8.2) g/dL Albumin (3.5-5.0) g/dL - Radiology Data Radiology results: report reviewed (Ultrasound positive for DVT. Computed tomography scan is discussed with radiologist positive for PE.) Critical Care Time Critical Care Time: Yes Total Critical Care Time: 33 Disposition Clinical Impression: Pulmonary emboli, Deep vein thrombosis (DVT) of lower extremity Disposition: ADMITTED IP TO THIS [facility] Is patient prescribed a controlled substance at d/c from ED?: No Referrals: Elena Vargas MD [Primary Care Provider] - 1-2 days Decision Time: 11:30
[2020-04-07 10:30] LABS: Basophils # (A) 0.1 k/uL (0-0.2); Basophils % (A) 1 %; Eosinophils # (A) 0.1 k/uL (0-0.7); Eosinophils % (A) 2 %; HCT 47.2 % (34.0-46.0); HGB 15.3 gm/dL (11.4-16.0); Lymphocytes # (A) 1.9 k/uL (1.0-4.8); Lymphocytes % (A) 23 %; MCH 29.4 pg (25.0-35.0); MCHC 32.3 g/dL (31.0-37.0); Mean Platelet Volume 7.5; Monocytes # (A) 0.3 k/uL (0-1.0); Monocytes % (A) 4 %; Neutrophils % (A) 71 %; Platelet Count 191 k/uL (150-450); RBC 5.19 m/uL (3.80-5.40); WBC 8.4 k/uL (3.8-10.6)
[2020-04-07 10:52] LABS: ALT 16 U/L (4-34); AST 28 U/L (14-36); African American GFR (CKD) >90 (>60 ml/min/1.73 sqM); Albumin 4.1 g/dL (3.5-5.0); Alkaline Phosphatase 88 U/L (38-126); Anion Gap 7 mmol/L; Blood Urea Nitrogen 20 mg/dL (7-17); Calcium 9.3 mg/dL (8.4-10.2); Carbon Dioxide 25 mmol/L (22-30); Chloride 108 mmol/L (98-107); Glucose 99 mg/dL (74-99); Non-African American GFR(CKD) 80 (>60 ml/min/1.73 sqM); Potassium 4.4 mmol/L (3.5-5.1); Sodium 140 mmol/L (137-145); Total Bilirubin 0.8 mg/dL (0.2-1.3); Total Protein 6.6 g/dL (6.3-8.2)
[2020-04-07 11:04] LABS: INR 0.9 (<1.2); Partial Thromboplastin Time 23.6 sec (22.0-30.0); Prothrombin Time 9.8 sec (9.0-12.0)
--- NOTE | 2020-04-07 11:12 | US ---
EXAMINATION TYPE: US venous doppler duplex LE RT DATE OF EXAM: 04/07/2020 10:56 AM COMPARISON: Bilateral lower extremity venous ultrasound 04/14/2019 CLINICAL HISTORY: Swelling. Edema right leg, history of DVT, patient not currently on blood thinners SIDE PERFORMED: right TECHNIQUE: The lower extremity deep venous system is examined utilizing real time linear array sonog mario with graded compression, doppler sonography and color-flow sonography. VESSELS IMAGED: External Iliac Vein (EIV) Common Femoral Vein Deep Femoral Vein Greater Saphenous Vein * Femoral Vein Popliteal Vein Small Saphenous Vein * Proximal Calf Veins (* superficial vessels) Right Leg: There is noncompressible partially occlusive thrombus of the right mid superficial femora l vein and occlusive thrombus of the distal femoral vein. Noncompressible areas of partially and comp letely occlusive thrombus of the popliteal vein. IMPRESSION: Deep venous thrombosis of the right superficial femoral vein extending into the popliteal vein. A Red level critical message alert has been initiated for Raman Ramirez DO via the [email or web address] System on 04/07/2020 11:09 AM. This message alert has been sent to Raman Ramirez DO via the preferences provided by the clinician for the receipt of Radiology Critical Findings. Message ID [id number].
[2020-04-07] MEDS ORDERED: HEPARIN SODIUM,PORCINE 5,000 UNIT/ML 1 ML VIAL IV PRN (11:25)
[2020-04-07] MEDS ORDERED: HEPARIN SODIUM,PORCINE 10,000 UNIT/ML 1 ML VIAL IV ONE (11:25)
--- NOTE | 2020-04-07 11:27 | CT ---
EXAMINATION TYPE: CT angio chest DATE OF EXAM: 04/07/2020 COMPARISON: CTA chest April 13, 2019 HISTORY: Dyspnea, SOB and Leg Swelling CT DLP: 424.8 mGycm. Automated Exposure Control for Dose Reduction was Utilized. CONTRAST: CTA scan of the thorax is performed without and with IV Contrast, patient injected with 100 ml mL of Isovue 370, pulmonary embolism protocol. MIP Images are created on CT scanner and reviewed. FINDINGS: LUNGS: New focus of groundglass opacity in the periphery of the lower right upper lobe axial image 60 through 68. Mild bibasilar linear scarring and/or atelectasis. There is no pleural effusion or pneu mothorax seen bilaterally. The tracheobronchial tree is patent. MEDIASTINUM: There is satisfactory enhancement of the pulmonary artery and its branches, there is rec urrent filling defect in the distal right pulmonary artery extending into superior middle and lower l obe branches similar to prior CT. There is additional recurrent thrombus in the left upper lobe branc hes with segmental extension axial image 64 reference There are no greater than 1 cm hilar or mediast inal lymph nodes. No cardiomegaly or pericardial effusion is seen. No new right ventricular dilatat ion. OTHER: Moderate multilevel spurring in the spine. IMPRESSION: Recurrent bilateral acute central pulmonary emboli slightly less prominent from 2019 CT. New Focus of groundglass opacity inferior posterior right upper lobe could reflect edema and/or acute infiltrate, correlate clinically. Critical results communicated to ordering ER physician via telephone at A Document Only message has been documented for Raman Ramirez DO in the [employer] Critical [employer] lt system on 04/07/2020 11:24 AM, Message ID [id number].
[2020-04-07] MEDS ORDERED: NALOXONE 0.4 MG/ML 1 ML VIAL IV PRN (11:30)
[2020-04-07] MEDS: HEPARIN SOD,PORK IN 0.45% NACL 25,000 UNIT in 0.45% NACL 1 250ML.BAG IV SCH (12:29)
[2020-04-07] MEDS ORDERED: ENALAPRILAT 1.25 MG/ML 1 ML VIAL IVP STA (12:54)
[2020-04-07] MEDS ORDERED: ACETAMINOPHEN TAB 500 MG TAB PO PRN (15:22)
[2020-04-07] MEDS ORDERED: ALPRAZolam 0.25 MG TAB PO PRN (15:22)
[2020-04-07] MEDS ORDERED: HYDROcodone/APAP 5-325MG 1 EACH TAB PO PRN (15:22)
--- NOTE | 2020-04-07 15:54 | XR ---
EXAMINATION TYPE: XR chest 1V portable DATE OF EXAM: 04/07/2020 CLINICAL HISTORY: CHF TECHNIQUE: Portable frontal view of the chest obtained COMPARISON: CTA chest 04/07/2020 at 1102 hours. Chest radiograph 04/18/2019. FINDINGS: The cardiomediastinal silhouette is within normal limits for size. Pulmonary vasculature i s normal. No definitive focal airspace opacity. No pleural effusion or pneumothorax seen. The osseous structures are intact. IMPRESSION: 1. Right upper lobe groundglass opacity on same-day CT examination not discretely seen on current ra diograph. 2. Normal heart size and pulmonary vasculature.
--- NOTE | 2020-04-07 16:42 | HP ---
HISTORY AND PHYSICAL DATE OF SERVICE: 04/07/2020 CHIEF COMPLAINTS: Right leg swelling and some shortness of breath. HISTORY OF PRESENT ILLNESS: This is an 89-year-old woman with a past medical history of multiple medical problems including history of DVT, history of pulmonary embolism, history of DJD, history of bilateral glaucoma, being followed by Dr. Vargas in the outpatient setting is complaining of some shortness of breath and right leg swelling. Because of lack of improvement, patient came to [facility]. Patient had ultrasound of the leg, showed DVT of the right superficial femoral near the popliteal vein. The patient also had CAT scan of the chest which showed recurrent bilateral acute central pulmonary emboli, less prominent than 2019 CT scan but; however, the patient was started on IV heparin, being admitted at this time. There is no history of fever, chills, or rigors. No history of headache, loss of consciousness, seizures at this time. PAST MEDICAL HISTORY: DVT, history of DJD, history of pulmonary embolism, history of appendectomy. The patient apparently had Xarelto for 3 months, the last time because it was thought to be provoked related to right knee joint surgery done by Dr. Newby at that time. HOME MEDICATIONS: 1.10 - 20 mg q.h.s. 2. Latanoprost 1 drop q.h.s. 3. Calcium with vitamin D. 4. Vitamin C 500 mg p.o. daily. ALLERGIES: None. FAMILY HISTORY: History of cancer in the family. SOCIAL HISTORY: No history of smoking. No alcohol intake. REVIEW OF SYSTEMS: ENT: No diminished vision or diminished hearing. CARDIOVASCULAR: No angina. RESPIRATORY: As mentioned earlier. GI: No nausea. : No dysuria. NERVOUS SYSTEM: No numbness or weakness. ALLERGY/IMMUNOLOGY: No asthma. MUSCULOSKELETAL: As mentioned earlier. HEMATOLOGY: No history of anemia. ENDOCRINE: No history of diabetes or hypothyroidism. CONSTITUTIONAL: As mentioned earlier. DERMATOLOGY: Negative. RHEUMATOLOGY: Negative. PSYCHIATRY: As mentioned earlier. PHYSICAL EXAM: Patient is alert, oriented x3. The pulse is 57, blood pressure 118/72, respirations 16, temperature 98.2, pulse ox 96% on room air. HEENT: Conjunctivae normal. Oral mucosa moist. NECK: No jugular venous distention. No lymph node enlargement. CARDIOVASCULAR: No S1, S2, muffled. RESPIRATION: Breath sounds diminished at the bases, a few scattered rhonchi, no crackles. ABDOMEN: Soft, nontender. No mass palpable. LEGS: Bilateral leg edema. Right more than the left. NERVOUS SYSTEM: Higher functions as mentioned earlier. Moves all 4 limbs, no focal motor deficits. SKIN: No ulcerations or rash. LYMPHATICS: No lymph node enlargement in the neck or axillae. LABS: CBC within normal limits and sodium 140, potassium 4.4. ASSESSMENT: 1. 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 2. History of previous DVT and pulmonary embolism. 3. Hypertensive urgency. 4. History of degenerative joint disease. 5. History of right knee replacement. 6. History of bilateral glaucoma. 7. History of bronchitis. 8. Obesity with body mass index of 32.8. 9. FULL CODE. RECOMMENDATION: In this 89-year-old woman who presented with multiple medical problems, will monitor the patient closely, continue with the current medication. Patient apparently had recurrent DVT and pulmonary embolism. I would recommend heparin at this time and long- term Xarelto. I would recommend to follow with Pulmonary and as well as Hematology/Oncology. Resume the home medications. Otherwise, symptomatic treatments, prognosis guarded because of multiple complex medical issues. I would also recommend a chest evaluation. Follow up with chest x-ray also. A 2D echo also will be done to evaluate for any right ventricular strain pattern. Prognosis guarded. A copy of this forwarded to Dr. Vargas who is the primary physician. Discussed with the patient who understands and agrees. MMODL / IJN: [id number] / SABINE
[2020-04-07 16:47] LABS: Glucose,Whole Blood 115 mg/dL (75-99)
[2020-04-07 19:02] LABS: Appearance,Urine Clear (Clear); Bacteria,Urine Few /hpf; Bilirubin,Urine Negative (Negative); Blood,Urine Negative (Negative); Color,Urine Yellow; Glucose,Urine (UA) Negative (Negative); Hyaline Casts,Urine 1 /lpf (0-2); Ketones,Urine Negative (Negative); Leukocyte Esterase,Urine Small (Negative); Mucus,Urine Rare /hpf; Nitrite,Urine Negative (Negative); PH, Urine 6.5 (5.0-8.0); Protein,Urine Negative (Negative); RBC,Urine 3 /hpf (0-5); Squamous Epithelial Cell,Urine 2 /hpf (0-4); Urobilinogen,Urine <2.0 mg/dL (<2.0); WBC,Urine 41 /hpf (0-5)
[2020-04-07 19:08] LABS: Specific Gravity,Urine >1.050 (1.001-1.035)
[2020-04-07] MEDS: MONTELUKAST 10 MG TAB PO SCH (20:42)
[2020-04-07] MEDS: amLODIPine 5 MG TAB PO SCH (22:40)
[2020-04-07] MEDS: LATANOPROST 0.005% OPHTH DROPS 2.5 ML BTL BOTH EYES SCH (22:41)
[2020-04-08] MEDS: HEPARIN SOD,PORK IN 0.45% NACL 25,000 UNIT in 0.45% NACL 1 250ML.BAG IV SCH ×2 (05:48→09:17)
[2020-04-08] MEDS: PANTOPRAZOLE 40 MG TABLET PO SCH (06:45)
[2020-04-08 07:18] LABS: Basophils # (A) 0.1 k/uL (0-0.2); Basophils % (A) 1 %; Eosinophils # (A) 0.1 k/uL (0-0.7); Eosinophils % (A) 2 %; HCT 42.5 % (34.0-46.0); HGB 13.3 gm/dL (11.4-16.0); Lymphocytes # (A) 1.3 k/uL (1.0-4.8); Lymphocytes % (A) 17 %; MCHC 31.2 g/dL (31.0-37.0); MCV 89.8 fL (80.0-100.0); Mean Platelet Volume 7.5; Monocytes # (A) 0.4 k/uL (0-1.0); Monocytes % (A) 5 %; Neutrophils # (A) 5.5 k/uL (1.3-7.7); Neutrophils % (A) 75 %; Platelet Count 174 k/uL (150-450); RBC 4.73 m/uL (3.80-5.40); RDW 14.1 % (11.5-15.5); WBC 7.3 k/uL (3.8-10.6)
[2020-04-08 07:26] LABS: Prothrombin Time 10.5 sec (9.0-12.0)
[2020-04-08 08:33] LABS: African American GFR (CKD) >90 (>60 ml/min/1.73 sqM); Anion Gap 4 mmol/L; Blood Urea Nitrogen 16 mg/dL (7-17); Calcium 9.3 mg/dL (8.4-10.2); Carbon Dioxide 24 mmol/L (22-30); Chloride 112 mmol/L (98-107); Glucose 102 mg/dL (74-99); Non-African American GFR(CKD) 80 (>60 ml/min/1.73 sqM); Potassium 4.7 mmol/L (3.5-5.1); Sodium 140 mmol/L (137-145)
[2020-04-08] MEDS: ASCORBIC ACID 500 MG TAB PO SCH (08:37)
[2020-04-08] MEDS: amLODIPine 5 MG TAB PO SCH (08:37)
[2020-04-08] MEDS: CALCIUM CARB-VIT D 500MG-200UN 1 EACH TAB PO SCH (08:37)
--- NOTE | 2020-04-08 11:35 | P.CONS ---
History of Present Illness - Reason for Consult Consult date: 04/08/20 DVT Requesting physician: Josh Samuel - Chief Complaint DVT - History of Present Illness Mrs. Hyatt is a very pleasant 89 year old female with known history of DVT and Pulmonary embolism in 2019. At that time she was placed on anti-coagulation for 3-6 months (time frame is unknown). She is a young 89. She denies any falls or unsteadiness. She denies any history of blood in stools, or urine. She does bruise quite easily at baseline. This past week she noticed her right leg swelling and when it started to hurt she decided to come to hospital to be further evaluated. It appears after doppler she has worsening DVT RLE. Therefore a CTA performed re-revealing pulmonary emoboli, this appears improved from the prior year therefore it is difficult to tell if this is new, it appears this is improved since 2019, and more consistent with original embolisms. Either way wit h this being her second thrombolic event life long anticoagulation is recommended. Review of Systems A 14 point review of systems assessed and completed and all negative except HPI Past Medical History Past Medical History: Deep Vein Thrombosis (DVT), Eye Disorder, Osteoarthritis (OA), Pulmonary Embolus (PE) Additional Past Medical History / Comment(s): DVT R leg, PE bilateral lungs, murmur-pt premedicates prior to procedures, bilateral glaucoma, bronchitis, arthritis R shoulder/back, UTI History of Any Multi-Drug Resistant Organisms: None Reported Past Surgical History: Appendectomy, Joint Replacement Additional Past Surgical History / Comment(s): Total right knee replacement, colonoscopy, bilateral cataract removal/lens implants. Past Anesthesia/Blood Transfusion Reactions: No Reported Reaction Smoking Status: Never smoker - Past Family History Mother Family Medical History: No Reported History Additional Family Medical History / Comment(s): Mother had "heart problems" later in her life. She lived to be 90 yrs old. Father Family Medical History: Cancer Additional Family Medical History / Comment(s): Pt believes father had stomach cancer. He from suicide. Medications and Allergies Home Medications Medication Instructions Recorded Confirmed Type Latanoprost/Pf [Latanoprost 0.005% 1 drop BOTH EYES HS 04/13/19 04/07/20 History Eye Drop] Zafirlukast [Accolate] 20 mg PO HS 04/13/19 04/07/20 History Ascorbic Acid [Vitamin C] 500 mg PO DAILY 04/07/20 04/07/20 History Calcium Carbonate/Vitamin D3 1 tab PO DAILY 04/07/20 04/07/20 History [Calcium 600-Vit D3 400 Tablet] Apixaban [Eliquis Starter Pack 0 mg PO DIRECTED 30 Days #1 pack 04/08/20 Rx (for VTE)] Allergies Allergy/AdvReac Type Severity Reaction Status Date / Time No Known Allergies Allergy Verified 04/07/20 10:35 Physical Exam Vitals: Vital Signs Temp Pulse Pulse Resp BP BP Pulse Ox 04/08/20 08:33 96.6 F L 94 18 106/70 94 L 04/08/20 04:00 98.1 F 61 16 150/80 95 04/08/20 02:05 168/80 04/08/20 00:00 97.9 F 68 18 191/82 94 L 04/07/20 20:00 97.8 F 61 18 185/74 94 L 04/07/20 17:14 94 L 04/07/20 16:00 97.8 F 57 L 20 170/62 94 L 04/07/20 13:05 57 L 16 189/72 96 04/07/20 12:30 98.2 F 70 16 193/89 94 L 04/07/20 12:00 97.8 F 62 18 178/70 94 L Intake and Output 04/07/20 04/08/20 04/08/20 22:59 06:59 14:59 Intake Total 319.19 82.655 299.078 Output Total 300 900 Balance 19.19 -817.345 299.078 Intake: Intake, IV Titration 99.19 82.655 59.078 Amount Heparin Sod,Pork in 0.45% 99.19 82.655 59.078 NaCl 25,000 unit In 0.45 % NaCl 1 250ml.bag @ 18 UNITS/KG/HR 15.105 mls/hr IV .[id number] [facility] Rx#: [id number] Oral 220 240 Output: Urine 300 900 Other: Voiding Method Toilet Toilet Weight 85 kg - Constitutional General appearance: cooperative, no acute distress - EENT Eyes: EOMI, poor dentition ENT: hard of hearing, NA/AT - Neck Neck: normal ROM - Respiratory Respiratory: bilateral: CTA - Cardiovascular Rhythm: regular Heart sounds: normal: S1, S2 leg Peripheral Edema: right: 3+ - Gastrointestinal General gastrointestinal: normal bowel sounds, soft - Integumentary Integumentary: pale - Neurologic non focal - Musculoskeletal Musculoskeletal: generalized weakness, strength equal bilaterally - Psychiatric Psychiatric: appropriate affect Results CBC & Chem 7: 04/08/20 06:53 04/08/20 06:53 Labs: Abnormal Lab Results - Last 24 Hours (Table) 04/07/20 04/07/20 04/07/20 Range/Units 16:44 17:28 18:25 APTT 183.9 H* (22.0-30.0) sec Chloride (98-107) mmol/L Glucose (74-99) mg/dL POC Glucose (mg/dL) 115 H (75-99) mg/dL Ur Specific [place] >1.050 H (1.001-1.035) Ur Leukocyte Esterase Small H (Negative) Urine WBC 41 H (0-5) /hpf Urine Bacteria Few H (None) /hpf Urine Mucus Rare H (None) /hpf 04/08/20 04/08/20 04/08/20 Range/Units 02:09 06:53 09:18 APTT 142.4 H* 92.8 H (22.0-30.0) sec Chloride 112 H (98-107) mmol/L Glucose 102 H (74-99) mg/dL POC Glucose (mg/dL) (75-99) mg/dL Ur Specific [place] (1.001-1.035) Ur Leukocyte Esterase (Negative) Urine WBC (0-5) /hpf Urine Bacteria (None) /hpf Urine Mucus (None) /hpf CT scan - chest: report reviewed Venous US: report reviewed Assessment and Plan (1) Deep vein thrombosis (DVT) of lower extremity Current Visit: Yes Status: Acute Code(s): I82.409 - ACUTE EMBOLISM AND THOMBOS UNSP DEEP VN UNSP LOWER EXTREMITY SNOMED Code(s): 800422890 (2) Pulmonary emboli Current Visit: Yes Status: Acute Code(s): I26.99 - OTHER PULMONARY EMBOLISM WITHOUT ACUTE COR PULMONALE SNOMED Code(s): 40959607 Plan: Assessment and recommendations: 1. Acute Right Occlusive Distal Fem DVT: - Continue on Heparin for the time being, ?vascular to assess if intervention needed - Plan to convert to DOAC at discharge, will ask case management to assess copay - PLan for lifelong anticoagulation as this is a recurrent thombolic event 2. Pulmonary Emboli: - Pulmonary is following - Again recurrent PEs will justify jail AC therapy Plan: - Patient can choose to undergo hypercoagulable work-up as outpatient although this will not change the recommendations as she will need life long ac therapy regardless since this is a recurrent thrombolic event. - Follow with primary care for up to date cancer screening. - Risk of injury, bleeding, falls on anticoagulation discussed. - Rx: for Eliquis starter pack sent to [facility] to review coverage with consult for case management Physician Attest: I have completed the full history and physical and developed the complete impression and plan, agree with above dictated as a scribe
--- NOTE | 2020-04-08 11:43 | ECHOF ---
Referral Reason:pe MEASUREMENTS -------- HEIGHT: 160.0 cm WEIGHT: 83.9 kg BP: Ao Diam: 2.9 cm (2.0 - 3.7) LA Diam: 4.1 cm (2.7 - 3.8) LA/Ao: 1.39 FINDINGS -------- Sinus rhythm. This was a technically adequate study. The left ventricular size is normal. There is mild concentric left ventricular hypertrophy. Overa ll left ventricular systolic function is low-normal with, an EF between 50 - 55 %. The right ventricle is normal in size. The left atrium is mildly dilated. The right atrial size is normal. There is mild aortic valve sclerosis without stenosis. Trace to mild aortic regurgitation. Mild mitral regurgitation is present. Mild tricuspid regurgitation present. Right ventricular systolic pressure is normal at < 35 mmHg. The pulmonic valve was not well visualized. The aortic root size is normal. There is no pericardial effusion. CONCLUSIONS -------- 1. Sinus rhythm. 2. The left ventricular size is normal. 3. Overall left ventricular systolic function is low-normal with, an EF between 50 - 55 %. 4. The left atrium is mildly dilated. 5. The right atrial size is normal. 6. There is mild aortic valve sclerosis without stenosis. 7. Mild mitral regurgitation is present. 8. Mild tricuspid regurgitation present. 9. Right ventricular systolic pressure is normal at < 35 mmHg. 10. The pulmonic valve was not well visualized. 11. The aortic root size is normal. 12. There is no pericardial effusion. PROSTHETIC ASSISTANT: Jessica Muse RDCS
[2020-04-08] MEDS: MULTIVITAMINS, THERA 1 EACH TAB PO SCH (13:15)
--- NOTE | 2020-04-08 14:21 | P.CNPUL ---
History of Present Illness Consult date: 04/08/20 Requesting physician: Josh Samuel Reason for consult: dyspnea, abnormal CXR/CT Chief complaint: Right lower extremity edema History of present illness: This is a very pleasant 89-year-old female patient with a known history of PE/DVT approximately 1 year ago and was on Eliquis for approximately 3 months. This was felt to be secondary to right knee surgery. She presented here to the emergency room yesterday with complaints of increased swelling of the right lower extremity. This started approximately 3-4 days prior to her arrival. Some very limited shortness of breath. No pain on inhalation. No chest pain. Doppler of the right lower extremity did reveal evidence of DVT of the right superficial femoral vein extending in the popliteal vein. CT angiogram revealed recurrent bilateral acute central pulmonary emboli slightly less prominent from 2019. New focus of groundglass opacity inferior posterior right upper lobe could reflect edema or acute infiltrate. She is seen today in consultation on the selective care unit. She is up ambulating in the room. Awake and alert in no acute distress. No worsening shortness of breath cough or congestion. No hemoptysis. Maintaining O2 saturations in the 90s on room air. She's been afebrile. Hemodynamically stable. Echocardiogram reveals preserved left ventricular systolic function. No evidence of right heart strain. White count 7.3. Hemoglobin 13.3. She's been initiated on a heparin drip. Review of Systems REVIEW OF SYSTEMS: CONSTITUTIONAL: Denies any recent significant weight loss or weight gain. EYES: Denies change in vision. EARS, NOSE, MOUTH, THROAT: Denies headaches, denies sore throat. CARDIOVASCULAR: Denies chest pain, palpitations or syncopal episodes. RESPIRATORY: Mild shortness of breath, no cough, congestion or hemoptysis. GASTROINTESTINAL: Denies change in appetite, denies abdominal pain GENITOURINARY: Denies hematuria, denies infections. MUSKULOSKELETAL: Swelling of the right lower extremity INTEGUMENTARY: Denies rash, denies eczema. NEUROLOGICAL: Denies recent memory loss, no recent seizure activity. PSYCHIATRIC: Denies anxiety, denies depression. HEMATOLOGIC/LYMPHATIC: Denies anemia, denies enlarged lymph nodes. Past Medical History Past Medical History: Deep Vein Thrombosis (DVT), Eye Disorder, Osteoarthritis (OA), Pulmonary Embolus (PE) Additional Past Medical History / Comment(s): DVT R leg, PE bilateral lungs, murmur-pt premedicates prior to procedures, bilateral glaucoma, bronchitis, arthritis R shoulder/back, UTI History of Any Multi-Drug Resistant Organisms: None Reported Past Surgical History: Appendectomy, Joint Replacement Additional Past Surgical History / Comment(s): Total right knee replacement, c olonoscopy, bilateral cataract removal/lens implants. Past Anesthesia/Blood Transfusion Reactions: No Reported Reaction Smoking Status: Never smoker - Past Family History Mother Family Medical History: No Reported History Additional Family Medical History / Comment(s): Mother had "heart problems" later in her life. She lived to be 90 yrs old. Father Family Medical History: Cancer Additional Family Medical History / Comment(s): Pt believes father had stomach cancer. He from suicide. Medications and Allergies Home Medications Medication Instructions Recorded Confirmed Type Latanoprost/Pf [Latanoprost 0.005% 1 drop BOTH EYES HS 04/13/19 04/07/20 History Eye Drop] Zafirlukast [Accolate] 20 mg PO HS 04/13/19 04/07/20 History Ascorbic Acid [Vitamin C] 500 mg PO DAILY 04/07/20 04/07/20 History Calcium Carbonate/Vitamin D3 1 tab PO DAILY 04/07/20 04/07/20 History [Calcium 600-Vit D3 400 Tablet] Apixaban [Eliquis Starter Pack 0 mg PO DIRECTED 30 Days #1 pack 04/08/20 Rx (for VTE)] Allergies Allergy/AdvReac Type Severity Reaction Status Date / Time No Known Allergies Allergy Verified 04/07/20 10:35 Physical Exam Vitals: Vital Signs Temp Pulse Resp BP Pulse Ox 04/08/20 08:33 96.6 F L 94 18 106/70 94 L 04/08/20 04:00 98.1 F 61 16 150/80 95 04/08/20 02:05 168/80 04/08/20 00:00 97.9 F 68 18 191/82 94 L 04/07/20 20:00 97.8 F 61 18 185/74 94 L 04/07/20 17:14 94 L 04/07/20 16:00 97.8 F 57 L 20 170/62 94 L Intake and Output 04/07/20 04/08/20 04/08/20 22:59 06:59 14:59 Intake Total 319.19 82.655 539.078 Output Total 300 900 Balance 19.19 -817.345 539.078 Intake: Intake, IV Titration 99.19 82.655 59.078 Amount Heparin Sod,Pork in 0.45% 99.19 82.655 59.078 NaCl 25,000 unit In 0.45 % NaCl 1 250ml.bag @ 18 UNITS/KG/HR 15.105 mls/hr IV .[id number] [facility] Rx#: [id number] Oral 220 480 Output: Urine 300 900 Other: Voiding Method Toilet Toilet Weight 85 kg GENERAL EXAM: Alert, active, pleasant 89-year-old female patient, on room air, comfortable in no apparent distress. HEAD: Normocephalic. EYES: Normal reaction of pupils, equal size. NOSE: Clear with pink turbinates. THROAT: No erythema or exudates. NECK: No masses, no JVD. CHEST: No chest wall deformity. LUNGS: Equal air entry with no crackles, wheeze, rhonchi or dullness. CVS: S1 and S2 normal with no audible murmur, regular rhythm. ABDOMEN: No hepatosplenomegaly, normal bowel sounds, no guarding or rigidity. SPINE: No scoliosis or deformity SKIN: No rashes CENTRAL NERVOUS SYSTEM: No focal deficits, tone is normal in all 4 extremities. EXTREMITIES: There is 1-2+ lower extremity edema on the right. No clubbing, no cyanosis. Peripheral pulses are intact. Results - Laboratory Findings CBC and BMP: 04/08/20 06:53 04/08/20 06:53 PT/INR, D-dimer PT 10.5 sec (9.0-12.0) 04/08/20 06:53 INR 1.0 (<1.2) 04/08/20 06:53 Abnormal lab findings: Abnormal Labs 04/07/20 04/07/20 04/07/20 10:21 10:21 16:44 Hct 47.2 H APTT Chloride 108 H BUN 20 H Glucose POC Glucose (mg/dL) 115 H Ur Specific [place] Ur Leukocyte Esterase Urine WBC Urine Bacteria Urine Mucus 04/07/20 04/07/20 04/08/20 17:28 18:25 02:09 Hct APTT 183.9 H* 142.4 H* Chloride BUN Glucose POC Glucose (mg/dL) Ur Specific [place] >1.050 H Ur Leukocyte Esterase Small H Urine WBC 41 H Urine Bacteria Few H Urine Mucus Rare H 04/08/20 04/08/20 06:53 09:18 Hct APTT 92.8 H Chloride 112 H BUN Glucose 102 H POC Glucose (mg/dL) Ur Specific [place] Ur Leukocyte Esterase Urine WBC Urine Bacteria Urine Mucus - Diagnostic Findings Chest x-ray: image reviewed CT scan - chest: image reviewed Assessment and Plan Assessment: 1 Acute right lower extremity DVT with recurrent bilateral acute central pulmonary emboli 2 Previous history of DVT and PE out to be secondary to previous right knee surgery, anticoagulated with Eliquis approximately 3 months in 2019 3 Osteoarthritis with previous right total knee replacement Plan: The patient was seen and evaluated by Dr. Ramsey She is stable from the pulmonary standpoint Could initiate Eliquis, lifelong therapy due to recurrent embolism Home once cleared medically I, the cosigning physician, performed a history & physical examination of the patient. Lungs sounds are clear. Maintaining good O2 saturations in the 90s on room air. I discussed the assessment and plan of care with my nurse practitioner, Katina Jacome. I attest to the above note as dictated by her.
--- NOTE | 2020-04-08 15:22 | PN ---
PROGRESS NOTE DATE OF SERVICE: 04/08/2020 This is an 89-year-old woman who was admitted with right leg swelling and shortness of breath had a combination of pulmonary embolism, DVT. The patient had similar symptoms 3 years ago. The patient was also seen by Hematology/Oncology. The patient recur due to lack the time of discharge. Lifelong anticoagulation also being planned by Hematology/Oncology. The 2D echo with Doppler was done to rule out the possibility of any RV strain, which showed normal right ventricular systolic pressure. Ejection fraction found to be 50%-55%. The patient will be closely monitored. PAST MEDICAL HISTORY: Reviewed. REVIEW OF SYSTEMS: CARDIOVASCULAR: No angina. RESPIRATION: As mentioned earlier. GI As mentioned earlier. : No dysuria. NERVOUS SYSTEM: As mentioned earlier. CURRENT MEDICATIONS: Reviewed and include: 1. Tylenol p.r.n. 2. Loving 5 mg. 3. Xanax. 4. Norvasc. 5. Vitamin C/. 6. Heparin drip. 7. Xalatan. 8. Singulair. 9. Multivitamins. 10.Narcan. 11.Protonix. PHYSICAL EXAM: Patient is alert and oriented x3. Pulse is 61. Blood pressure 150/80, respiration 16, temperature is 98.2, pulse ox 94% on room air. HEENT: Conjunctivae normal, oral mucosa moist. NECK: No jugular venous distention. No lymph node enlargement. CARDIOVASCULAR .SYSTEM: S1, S2, muffled. RESPIRATION: Breath sounds diminished at the bases, a few scattered rhonchi, no crackles. ABDOMEN: Soft, obese. LEGS: Bilateral leg edema. NERVOUS SYSTEM: No focal deficits. LABS: At this time show CBC within normal limits and APTT 92.2. Sodium 140, potassium 4.7. UA noted. UA showed possible UTI. ASSESSMENT: 1. 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 2. History of previous DVTs and pulmonary embolism. 3. Acute urinary tract infection, present on admission. 4. Hypertensive urgency. 5. History of degenerative joint disease. 6. History of right knee replacement. 7. History of bilateral glaucoma. 8. History of bronchitis. 9. Obesity with body mass index of 32.8. 10.FULL CODE. RECOMMENDATIONS AND DISCUSSION: Recommend to continue current management and at this time I recommend to continue with heparin drip. Otherwise, I would also recommend urine culture and course of Rocephin as well otherwise continue the rest of the medications. Current medications include vanc, the patient will be being candidate for Eliquis which could be started in a day or two and transitioned. Otherwise, will continue to monitor and x-rays and CT scan reviewed personally. Prognosis extremely guarded. Further recommendations to follow. A copy of dictation will be forwarded to Dr. Vargas. BETTIE / LOLLYN: [id number] /
[2020-04-08] MEDS: LATANOPROST 0.005% OPHTH DROPS 2.5 ML BTL BOTH EYES SCH (20:41)
[2020-04-08] MEDS: MONTELUKAST 10 MG TAB PO SCH (20:41)
[2020-04-09] MEDS: PANTOPRAZOLE 40 MG TABLET PO SCH (06:25)
[2020-04-09 06:57] LABS: Basophils # (A) 0.1 k/uL (0-0.2); Basophils % (A) 1 %; Eosinophils # (A) 0.2 k/uL (0-0.7); Eosinophils % (A) 2 %; HCT 41.5 % (34.0-46.0); HGB 13.6 gm/dL (11.4-16.0); Lymphocytes # (A) 1.2 k/uL (1.0-4.8); Lymphocytes % (A) 18 %; MCH 29.4 pg (25.0-35.0); MCHC 32.7 g/dL (31.0-37.0); Mean Platelet Volume 7.6; Monocytes # (A) 0.4 k/uL (0-1.0); Monocytes % (A) 5 %; Neutrophils # (A) 4.8 k/uL (1.3-7.7); Neutrophils % (A) 72 %; Platelet Count 159 k/uL (150-450); RBC 4.61 m/uL (3.80-5.40); RDW 14.1 % (11.5-15.5); WBC 6.7 k/uL (3.8-10.6)
[2020-04-09 07:10] LABS: Partial Thromboplastin Time 93.9 sec (22.0-30.0); Prothrombin Time 10.3 sec (9.0-12.0)
[2020-04-09 08:22] LABS: African American GFR (CKD) >90 (>60 ml/min/1.73 sqM); Anion Gap 3 mmol/L; Blood Urea Nitrogen 15 mg/dL (7-17); Calcium 8.8 mg/dL (8.4-10.2); Carbon Dioxide 27 mmol/L (22-30); Chloride 110 mmol/L (98-107); Glucose 96 mg/dL (74-99); Non-African American GFR(CKD) 80 (>60 ml/min/1.73 sqM); Potassium 4.2 mmol/L (3.5-5.1); Sodium 140 mmol/L (137-145)
[2020-04-09] MEDS: ASCORBIC ACID 500 MG TAB PO SCH (09:04)
[2020-04-09] MEDS: CALCIUM CARB-VIT D 500MG-200UN 1 EACH TAB PO SCH (09:04)
[2020-04-09] MEDS: amLODIPine 5 MG TAB PO SCH (09:04)
--- NOTE | 2020-04-09 11:17 | P.PN ---
Subjective Progress Note Date: 04/09/20 Principal diagnosis: Bilateral central pulmonary emboli, right lower extremity DVT This is a very pleasant 89-year-old female patient with a known history of PE/DVT approximately 1 year ago and was on Eliquis for approximately 3 months. This was felt to be secondary to right knee surgery. She presented here to the emergency room yesterday with complaints of increased swelling of the right lower extremity. This started approximately 3-4 days prior to her arrival. Some very limited shortness of breath. No pain on inhalation. No chest pain. Doppler of the right lower extremity did reveal evidence of DVT of the right superficial femoral vein extending in the popliteal vein. CT angiogram revealed recurrent bilateral acute central pulmonary emboli slightly less prominent from 2019. New focus of groundglass opacity inferior posterior right upper lobe could reflect edema or acute infiltrate. She is seen today in consultation on the selective care unit. She is up ambulating in the room. Awake and alert in no acute distress. No worsening shortness of breath cough or congestion. No hemoptysis. Maintaining O2 saturations in the 90s on room air. She's been afebrile. Hemodynamically stable. Echocardiogram reveals preserved left ventricular systolic function. No evidence of right heart strain. White count 7.3. Hemoglobin 13.3. She's been initiated on a heparin drip. The patient is seen today 04/09/2020 in follow-up on the selective care unit. She is currently sitting up in a chair at the bedside. Awake and alert in no acute distress. She is maintaining good O2 saturation in the 90s on room air. She's been afebrile. Hemodynamically stable. White count 6.7. Hemoglobin 13.6. Sodium 140. Potassium 4.2. Creatinine 0.63. Remains on heparin drip. To be initiated on Eliquis depending on coverage. Objective - Vital Signs Vital signs: Vital Signs Temp 97.7 F 04/09/20 08:00 Pulse 68 04/09/20 08:00 Resp 18 04/09/20 08:00 BP 156/78 04/09/20 08:00 Pulse Ox 96 04/09/20 08:00 Intake & Output 04/08/20 04/09/20 04/09/20 18:59 06:59 18:59 Intake Total 539.078 389.278 Output Total 300 Balance 239.078 389.278 Intake: Intake, IV Titration 59.078 149.278 Amount Heparin Sod,Pork in 0.45% 59.078 149.278 NaCl 25,000 unit In 0.45 % NaCl 1 250ml.bag @ 18 UNITS/KG/HR 15.105 mls/hr IV .[id number] REBECCA Rx#: [id number] Oral 480 240 Output: Urine 300 Other: Voiding Method Toilet Toilet # Voids 3 1 # Bowel Movements 1 - Exam GENERAL EXAM: Alert, active, pleasant 89-year-old female patient, on room air, comfortable in no apparent distress. HEAD: Normocephalic. EYES: Normal reaction of pupils, equal size. NOSE: Clear with pink turbinates. THROAT: No erythema or exudates. NECK: No masses, no JVD. CHEST: No chest wall deformity. LUNGS: Equal air entry with no crackles, wheeze, rhonchi or dullness. CVS: S1 and S2 normal with no audible murmur, regular rhythm. ABDOMEN: No hepatosplenomegaly, normal bowel sounds, no guarding or rigidity. SPINE: No scoliosis or deformity SKIN: No rashes CENTRAL NERVOUS SYSTEM: No focal deficits, tone is normal in all 4 extremities. EXTREMITIES: There is 1-2+ lower extremity edema on the right. No clubbing, no cyanosis. Peripheral pulses are intact. 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 Ramsey Awaiting insurance coverage for Eliquis, lifelong therapy due to recurrent embolism Home once cleared medically I, the cosigning physician, performed a history & physical examination of the patient. Lungs sounds are clear. Maintaining good O2 saturations in the 90s on room air. I discussed the assessment and plan of care with my nurse practitioner, Katina Jacome. I attest to the above note as dictated by her.
[2020-04-09] MEDS: MULTIVITAMINS, THERA 1 EACH TAB PO SCH (12:35)
[2020-04-09 12:38] VITALS: BP 150/74; PULSE 72; RESP 16; TEMP 97.9
[2020-04-09] MEDS ORDERED: APIXABAN 5 MG TAB PO SCH (16:13)
--- NOTE | 2020-04-11 18:01 | P.DS ---
Providers Date of admission: 04/07/20 11:30 Expected date of discharge: 04/09/20 Attending physician: Josh Samuel Consults: 04/07/20 11:30 Consult Physician Urgent Consulting Provider: Donnie Ramsey Consult Reason/Comments: pe Do you want consulting provider notified?: Yes 04/07/20 15:21 Consult Physician Routine Consulting Provider: George Hernandez Consult Reason/Comments: dvt Do you want consulting provider notified?: Yes Primary care physician: Elena Vargas [facility] Course: 89-year-old female patient with a known history of PE/DVT approximately 1 year ago and was on Eliquis for approximately 3 months. This was felt to be secondary to right knee surgery. She presented here to the emergency room yesterday with complaints of increased swelling of the right lower extremity. This started approximately 3-4 days prior to her arrival. Some very limited shortness of breath. No pain on inhalation. No chest pain. Doppler of the right lower extremity did reveal evidence of DVT of the right superficial femoral vein extending in the popliteal vein. CT angiogram revealed recurrent bilateral acute central pulmonary emboli slightly less prominent from 2019. New focus of groundglass opacity inferior posterior right upper lobe could reflect edema or acute infiltrate. She is seen today in consultation on the selective care unit. She is up ambulating in the room. Awake and alert in no acute distress. No worsening shortness of breath cough or congestion. No hemoptysis. Maintaining O2 saturations in the 90s on room air. She's been afebrile. Hemodynamically stable. Echocardiogram reveals preserved left ventricular systolic function. No evidence of right heart strain. White count 7.3. Hemoglobin 13.3. She's been initiated on a heparin drip. The patient is seen today 04/09/2020 in follow-up on the selective care unit. She is currently sitting up in a chair at the bedside. Awake and alert in no acute distress. She is maintaining good O2 saturation in the 90s on room air. She's been afebrile. Hemodynamically stable. White count 6.7. Hemoglobin 13.6. Sodium 140. Potassium 4.2. Creatinine 0.63. Remains on heparin drip. To be initiated on Eliquis depending on coverage. Plan - Discharge Summary Discharge Rx Participant: No New Discharge Prescriptions: New Apixaban [Eliquis Starter Pack (for VTE)] 0 mg PO DIRECTED 30 Days #1 pack amLODIPine [Norvasc] 5 mg PO DAILY #30 tab Apixaban [Eliquis] 10 mg PO BID #10 tab Continue Zafirlukast [Accolate] 20 mg PO HS Latanoprost/Pf [Latanoprost 0.005% Eye Drop] 1 drop BOTH EYES HS Calcium Carbonate/Vitamin D3 [Calcium 600-Vit D3 400 Tablet] 1 tab PO DAILY Ascorbic Acid [Vitamin C] 500 mg PO DAILY Discharge Medication List Latanoprost/Pf [Latanoprost 0.005% Eye Drop] 1 drop BOTH EYES HS 04/13/19 [History] Zafirlukast [Accolate] 20 mg PO HS 04/13/19 [History] Ascorbic Acid [Vitamin C] 500 mg PO DAILY 04/07/20 [History] Calcium Carbonate/Vitamin D3 [Calcium 600-Vit D3 400 Tablet] 1 tab PO DAILY 04/07/20 [History] Apixaban [Eliquis Starter Pack (for VTE)] 0 mg PO DIRECTED 30 Days #1 pack 04/08/20 [Rx] Apixaban [Eliquis] 10 mg PO BID #10 tab 04/09/20 [Rx] amLODIPine [Norvasc] 5 mg PO DAILY #30 tab 04/09/20 [Rx] Follow up Appointment(s)/Referral(s): Elena Vargas MD [Primary Care Provider] - 1-2 days Patient Instructions/Handouts: Pulmonary Embolism (DC), Deep Vein Thrombosis (DC) Discharge Disposition: HOME SELF-CARE
== END 2020-04-09 16:54 | disposition home or self-care (01) | DRG 299 ==
LOC: EC 09:41 → 3SCARD 11:30
PROVIDERS: ADMIT Hospitalist; ATTEND Hospitalist
DX: I82.431 Acute embolism and thrombosis of right popliteal vein (principal); I26.99 Other pulmonary embolism without acute cor pulmonale; E66.9 Obesity, unspecified; I16.0 Hypertensive urgency; M19.011 Primary osteoarthritis, right shoulder; H40.9 Unspecified glaucoma; R01.1 Cardiac murmur, unspecified; Z20.828 Contact with and (suspected) exposure to other viral communicable diseases; M47.9 Spondylosis, unspecified; Z68.32 Body mass index [BMI] 32.0-32.9, adult; Z86.711 Personal history of pulmonary embolism; Z86.718 Personal history of other venous thrombosis and embolism; Z90.49 Acquired absence of other specified parts of digestive tract; Z96.651 Presence of right artificial knee joint; Z79.899 Other long term (current) drug therapy; Z87.440 Personal history of urinary (tract) infections; Z98.42 Cataract extraction status, left eye; Z98.41 Cataract extraction status, right eye; Z96.1 Presence of intraocular lens; Z80.0 Family history of malignant neoplasm of digestive organs; Z81.8 Family history of other mental and behavioral disorders
CPT/HCPCS: 36415; 71045; 71275; 80048; 80053; 81001; 83880; 84484; 85025; 85610; 85730; 87040; 87077; 87086; 87186; 93005; 93306; 96365; 96366; 96375; 96376; 99285